=== PATIENT | female | born 1940 | race Caucasian/White ===

== ENCOUNTER 2019-10-24 14:22 | Outpatient (CLI) | payer MEDICARE, SELFPAY ==
--- NOTE | ~2019-10-24 | XR_ITS ---
XR chest 2V DATE: 10/24/2019 14:45 INDICATION: Intermittent midsternal chest pain TECHNIQUE: 2 views COMPARISON: 06/01/2015 2 view chest 06/14/2015 CT thorax with IV contrast material FINDINGS: Normal heart size. Mild aortic tortuosity and calcification. No interval hilar or mediastin al enlargement. No pulmonary infiltrate or consolidation, pleural effusion or pulmonary vascular ashley estion or pneumothorax. Diffuse osteopenia. Mild scoliosis and degenerative changes of the spine. IMPRESSION: No active cardiopulmonary disease or significant change since 06/01/2015. Reviewed, dictated and finalized at location A. IMPRESSION: No active cardiopulmonary disease or significant change since 2015.
[2019-10-24 14:36] LABS: Basophils Absolute Auto 0.06 K/mm3 (0.00-0.10); Basophils Percent Auto 0.7 % (0.0-1.0); Eosinophils Absolute Auto 0.15 K/mm3 (0.02-0.50); Eosinophils Percent Auto 1.9 % (1.0-6.0); Hematocrit 40.5 % (35.0-42.0); Hemoglobin 13.4 g/dL (11.7-13.8); Immature Granulocyte Absolute 0.03 K/mm3 (0.00-0.00); Immature Granulocyte Percent A 0.4 % (0.0-0.0); Lymphocytes Absolute Auto 1.92 K/mm3 (1.10-4.50); Lymphocytes Percent Auto 23.7 % (18.0-42.0); Mean Corpuscular HGB Conc 33.1 g/dL (32.0-36.0); Mean Corpuscular Volume 90.8 fL (78.0-102.0); Mean Platelet Volume 10.3 fl (9.2-11.8); Monocytes Absolute Auto 0.67 K/mm3 (0.10-0.90); Monocytes Percent Auto 8.3 % (2.0-11.0); Neutrophils Absolute Auto 5.3 K/mm3 (1.7-7.2); Platelet Count Result 247 K/mm3 (150-420); Red Blood Count 4.46 M/mm3 (4.20-5.40); Red Cell Distribution Width 12.7 % (11.6-14.4); White Blood Count 8.1 K/mm3 (4.8-10.8)
[2019-10-24 14:51] LABS: D Dimer 0.29 mg/L (0.19-0.50)
[2019-10-24 15:00] LABS: Alanine Aminotransferase 35 U/L (14-59); Alkaline Phosphatase 115 U/L (46-116); Anion Gap 13.3 mmol/L (7-16); Aspartate Amino Transferase 22 U/L (15-37); BNP 65 pg/mL (0-100); Bilirubin,Total 1.1 mg/dL (0.00-1.00); Blood Urea Nitrogen 19 mg/dL (7-18); Calcium 9.4 mg/dL (8.5-10.1); Carbon Dioxide 27 mmol/L (21-32); Chloride 100 mmol/L (98-108); Cholesterol 169 mg/dL (0-200); Creatine Kinase 86 U/L (26-192); Estimated Glomerular Filt Rate > 60; Glucose 159 mg/dL (70-99); HDL Direct 63 mg/dL (40-60); LDL Cholesterol Calculated 64 mg/dL (<130); Osmolality Calculated 287 mOsm/kg (285-295); Potassium 4.3 mmol/L (3.5-5.1); Sodium 136 mmol/L (136-145); Total Protein 7.2 g/dL (6.4-8.2); Triglycerides 209 mg/dL (0-150); Troponin I < 0.02 ng/mL (0.00-0.056)
[2019-10-24 15:04] LABS: Hemoglobin A1C 7.3 % (<5.7)
== END 2019-10-24 14:23 | disposition home or self-care (01) ==
LOC: CHSLAB 14:26
PROVIDERS: PCP Internal Medicine; Visit Provider Internal Medicine
DX: R07.9 Chest pain, unspecified (principal); I25.10 Atherosclerotic heart disease of native coronary artery without angina pectoris; I10 Essential (primary) hypertension; E11.9 Type 2 diabetes mellitus without complications; I50.9 Heart failure, unspecified
CPT/HCPCS: 36415; 71046; 80053; 80061; 82550; 82553; 83036; 83880; 84484; 85025; 85380

== ENCOUNTER 2020-01-27 08:42 | Outpatient (CLI) | payer MEDICARE, SELFPAY ==
--- NOTE | ~2020-01-27 | XR_ITS ---
XR lumbar spine 2-3V DATE: 01/27/2020 09:13 INDICATION: Chronic low back pain. No known injury. TECHNIQUE: AP, lateral, coned lateral lumbosacral views COMPARISON: 11/16/2008 lumbar spine FINDINGS: There is increased levoscoliosis of the lower thoracic and lumbar spine compared to 11/17/19 09, with some rotation. There is diffuse osteopenia. There is prominent degenerative disc disease throughout the lumbar and lumbosacral spine, as noted pr eviously. There is prominent degenerative disease at T11-12 and T12-L1 as well. No fracture or bone destruction is evident. The included lower thoracic and lumbar pedicles appear in tact. The sacroiliac joints appear normal. IMPRESSION: Increased degree of levoscoliosis of thoracolumbar spine since 11/16/2008 Prominent multilevel degenerative disc disease of the lumbar and lumbosacral spine is again noted Reviewed, dictated and finalized at location A. IMPRESSION: Increased degree of levoscoliosis of thoracolumbar spine since 11/16 Prominent multilevel degenerative disc disease of the lumbar and lumbosacral sp ine is again noted
== END 2020-01-27 08:43 | disposition home or self-care (01) ==
PROVIDERS: PCP Internal Medicine; Visit Provider Internal Medicine
DX: M54.9 Dorsalgia, unspecified (principal)
CPT/HCPCS: 72100

== ENCOUNTER 2020-05-17 09:05 | Outpatient (CLI) | payer MEDICARE, SELFPAY ==
--- NOTE | ~2020-05-17 | CT_ITS ---
EXAMINATION: CT brain wo/w con DATE: 05/17/2020 10:17 INDICATION: Patient was very confused. Cerebrovascular accident. TECHNIQUE: Computed tomography (CT) of the head was performed without and subsequently with 100 cc Om nipaque 350 intravenous contrast. The mA was adjusted according to patient size. Iterative reconstruc tion technique was employed. Exam dose: 1059.33 mGy-cm total exam DLP. COMPARISON: None FINDINGS: No fracture or bone destruction of the cranial vault. Included paranasal sinuses and mastoi d air cells are unremarkable. There is prominent calcification of the vertebral arteries and carotid siphon internal carotid arteri es. There is nonspecific diminished attenuation of the subcortical and periventricular cerebral white matter, likely due to chronic small vessel ischemic changes. No intracranial mass lesion or hemorrhage, midline shift or mass effect or recent cerebrovascular acc ident is evident. No midline shift or mass effect. No subdural or epidural hematoma. IMPRESSION: Cerebral atherosclerosis and chronic small vessel ischemic changes of the cerebral white matter No acute intracranial finding Reviewed, dictated and finalized at Location A. Reviewed, dictated and finalized at location A. 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
[2020-05-17 09:30] LABS: Estimated Glomerular Filt Rate > 60
== END 2020-05-17 09:06 | disposition home or self-care (01) ==
LOC: CHSIMG 09:07
PROVIDERS: PCP Internal Medicine; Visit Provider Specialist
DX: I63.9 Cerebral infarction, unspecified (principal)
CPT/HCPCS: 70470; Q9965; Q9967

== ENCOUNTER 2020-06-15 09:40 | Outpatient (CLI) | payer MEDICARE, SELFPAY ==
--- NOTE | ~2020-06-15 | XR_ITS ---
EXAMINATION: XR chest 2V DATE: 06/15/2020 10:36 INDICATION: Coronary artery disease, shortness of breath and weakness. TECHNIQUE: PA and lateral views of the chest were obtained. COMPARISON: Chest radiograph dated 10/24/2019 FINDINGS: Minimal bibasilar atelectasis. No pleural effusion or pneumothorax. Mild thoracolumbar kyphosis with moderate spondylosis. IMPRESSION: 1. Minimal bibasilar atelectasis. Reviewed, dictated and finalized at location B. 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
[2020-06-15 09:59] LABS: Basophils Absolute Auto 0.06 K/mm3 (0.00-0.10); Basophils Percent Auto 0.6 % (0.0-1.0); Eosinophils Absolute Auto 0.12 K/mm3 (0.02-0.50); Eosinophils Percent Auto 1.2 % (1.0-6.0); Hematocrit 42.1 % (35.0-42.0); Hemoglobin 13.6 g/dL (11.7-13.8); Immature Granulocyte Absolute 0.05 K/mm3 (0.00-0.00); Immature Granulocyte Percent A 0.5 % (0.0-0.0); Lymphocytes Absolute Auto 1.85 K/mm3 (1.10-4.50); Mean Corpuscular HGB Conc 32.3 g/dL (32.0-36.0); Mean Corpuscular Hemoglobin 29.9 pg (27.0-31.0); Mean Corpuscular Volume 92.5 fL (78.0-102.0); Mean Platelet Volume 10.9 fl (9.2-11.8); Monocytes Absolute Auto 0.61 K/mm3 (0.10-0.90); Monocytes Percent Auto 6.3 % (2.0-11.0); Neutrophils Absolute Auto 7.1 K/mm3 (1.7-7.2); Neutrophils Percent Auto 72.4 % (50.0-70.0); Platelet Count Result 219 K/mm3 (150-420); Red Blood Count 4.55 M/mm3 (4.20-5.40); Red Cell Distribution Width 12.3 % (11.6-14.4); White Blood Count 9.8 K/mm3 (4.8-10.8)
[2020-06-15 10:00] LABS: Appearance Urine Clear (Clear); Bilirubin Urine Negative (Negative); Color Urine Yellow (Yellow); Glucose Urine UA Negative (Negative); Ketones Urine Negative (Negative); Leukocyte Esterase Ur 1+ (Negative); Nitrate Urine Negative (Negative); Protein Urine Negative (Negative); Specific Grav Ur >= 1.030 (1.010-1.020); Urobilinogen Urine 0.2 mg/dL (0.2-1.0)
[2020-06-15 10:05] LABS: Add Urine Microscopic? YES; Bacteria Urine None seen /hpf; Blood Urine Trace (Negative); RBC Urine 0-2 /hpf (0-2); Squamous Epithelial Cell Urine Rare /hpf (Few)
[2020-06-15 10:09] LABS: Hemoglobin A1C 6.9 % (<5.7)
[2020-06-15 10:47] LABS: Alanine Aminotransferase 28 U/L (14-59); Albumin Level 4.5 g/dL (3.4-5.0); Alkaline Phosphatase 118 U/L (46-116); Anion Gap 9 mmol/L (8-16); Aspartate Amino Transferase 19 U/L (15-37); Blood Urea Nitrogen 18 mg/dL (7-18); Calcium 9.7 mg/dL (8.5-10.1); Carbon Dioxide 30 mmol/L (21-32); Chloride 99 mmol/L (98-108); Cholesterol 162 mg/dL (0-200); Estimated Glomerular Filt Rate > 60; Free T3 2.27 pg/mL (2.18-3.98); Free T4 Free Thyroxine 1.11 ng/dL (0.76-1.46); Glucose 178 mg/dL (70-99); HDL Direct 61 mg/dL (40-60); LDL Cholesterol Calculated 70 mg/dL (<130); Osmolality Calculated 291 mOsm/kg (285-295); Potassium 4.8 mmol/L (3.5-5.1); Sodium 138 mmol/L (136-145); Thyroid Stimulating Hormone 0.95 uIU/mL (0.36-3.74); Total Protein 7.6 g/dL (6.4-8.2); Triglycerides 157 mg/dL (0-150)
[2020-06-15 10:50] LABS: CRP < 0.2 mg/dL (0.0-0.9)
[2020-06-17 22:51] LABS: Methylmalonic Acid 220 nmol/L (87-318)
== END 2020-06-15 09:41 | disposition home or self-care (01) ==
LOC: CHSLAB 09:43
PROVIDERS: PCP Internal Medicine; Visit Provider Internal Medicine
DX: M54.9 Dorsalgia, unspecified (principal); R32 Unspecified urinary incontinence; I25.10 Atherosclerotic heart disease of native coronary artery without angina pectoris; R26.9 Unspecified abnormalities of gait and mobility; E11.9 Type 2 diabetes mellitus without complications; E53.8 Deficiency of other specified B group vitamins
CPT/HCPCS: 36415; 71046; 80053; 80061; 81001; 83036; 83921; 84439; 84443; 84481; 85025; 86140; 87086; 87088

== ENCOUNTER 2020-06-16 07:10 | Outpatient (CLI) | payer MEDICARE, SELFPAY ==
--- NOTE | ~2020-06-16 | DEXA_ITS ---
Bone Density Report Name: Yadira Grimes Age: 79 Sex: Female Ethnicity: White Date of : 1940 Indication: postmenopausal; screening for osteoporosis; height loss; Referring Provider: Kapil Cano Study: Bone densitometry was performed. Exam Date: June 16, 2020 Accession number: [id number] Bone Density: Region BMD T-score Z-score Classification AP Spine(L1-L4) 1.102 0.5 3.2 Normal Femoral Neck (Left) 0.859 0.1 2.4 Normal Total Hip (Left) 0.925 -0.1 2.0 Normal Femoral Neck (Right) 0.831 -0.2 2.2 Normal Total Hip (Right) 0.941 0.0 2.1 Normal Femoral Neck Mean 0.845 0.0 2.3 Normal Total Hip Mean 0.933 -0.1 2.0 Normal World Health Organization criteria for BMD impression classify patients as: Normal (T-score at or above -1.0), Osteopenia (T-score between -1.0 and -2.5), or Osteoporosis (T-score at or below -2.5). 10-year Fracture Risk: FRAX not reported because: All T-scores for Spine Total, Hip Total, Femoral Neck at or above -1.0 Clinical Information Provided by Patient: Has used the following medications: Vitamin D Patient maximum height was 63.5 Menopause Age: 57 Onset of menses at age 11 Number of children 6 Impression: The patient has normal bone mass. Discussion: LOW RISK OF FRACTURE; BONE DENSITY IS WELL ABOVE THE MINIMUM DESIRABLE LEVEL AND ABOVE AVERAGE FOR AGE AND SEX AT ALL SKELETAL SITES TESTED. This person's bone density is above expected limits for age and sex. This is rarely clinically significant, but should be pursued if there are significant musculoskeletal complaints. The patient should follow a healthful lifestyle (good nutrition with adequate calcium and vitamin D, and appropriate weight-bearing exercise). Follow-Up: Consider repeating this study in 5 years or sooner if there is some new clinical indication. Reported by: Dr. Karthikeyan Holbrook on 06/16/2020 8:02:00 AM. Reviewed, dictated and finalized at location AMartina [facility]
--- NOTE | ~2020-06-16 | MR_ITS ---
EXAMINATION: MR lumbar spine wo con DATE: 06/16/2020 08:30 INDICATION: Low back pain. TECHNIQUE: Magnetic resonance imaging (MRI) of the lumbar spine was performed without intravenous con trast. Sequences included sagittal T2-weighted FSE, coronal T2-weighted FSE, sagittal T2-weighted FS FSE, sagittal T1-weighted FSE, and axial T1-weighted FSE. COMPARISON: Lumbar spine radiographs 01/27/2020 FINDINGS: There is 19 degrees levoscoliosis of thoracolumbar spine. There is 3 mm retrolisthesis of L 2 on L3 and L1 on L2. There is severely decreased disc height from T11-T12 through L1-L2, moderately decreased disc height at L2-L3 and L3-L4, and severely decreased disc height at L4-L5 and L5-S1. The distal spinal cord signal intensity is normal. The conus medullaris is at L1. The following disc leve ls are specifically discussed: L1-L2: The disc is bulging and has an annular fissure. There is mild bilateral facet joint osteoarthr itis. There is moderate right and mild left neural foraminal stenosis. There is mild central canal st enosis. L2-L3: The disc is bulging. There is mild bilateral facet joint osteoarthritis. There is moderate edgard ateral neural foraminal stenosis. There is mild central canal stenosis. L3-L4: The disc is bulging and has an annular fissure. There is mild right and severe left facet join t osteoarthritis. There is moderate bilateral neural foraminal stenosis. There is moderate central ca nal stenosis. L4-L5: The disc is bulging and has an annular fissure. There is moderate right and severe left facet joint osteoarthritis. There is moderate bilateral neural foraminal stenosis. There is mild central ca nal stenosis. L5-S1: The disc is bulging and has an annular fissure. There is severe bilateral facet joint osteoart hritis. There is moderate bilateral neural foraminal stenosis. There is mild central canal stenosis. IMPRESSION: 1. Severe lumbar spondylosis. 2. Thoracolumbar levoscoliosis. Reviewed, dictated and finalized at location A. 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
== END 2020-06-16 07:11 | disposition home or self-care (01) ==
PROVIDERS: PCP Internal Medicine; Visit Provider Internal Medicine
DX: M54.9 Dorsalgia, unspecified (principal); Z78.0 Asymptomatic menopausal state; R32 Unspecified urinary incontinence; I25.10 Atherosclerotic heart disease of native coronary artery without angina pectoris; R26.89 Other abnormalities of gait and mobility; E11.9 Type 2 diabetes mellitus without complications; E53.8 Deficiency of other specified B group vitamins
CPT/HCPCS: 72148; 77080

== ENCOUNTER 2020-10-13 09:10 | Outpatient (CLI) | payer MEDICARE, SELFPAY ==
--- NOTE | ~2020-10-13 | MR_ITS ---
EXAMINATION: MR brain/brain stem wo con DATE: 10/13/2020 12:01 INDICATION: Headache. Confusion. TECHNIQUE: Magnetic resonance imaging (MRI) of the brain and brainstem was performed without intraven ous contrast. Sequences included sagittal and axial T1-weighted FSE, axial diffusion-weighted FS EPI, axial T2*-weighted GRE, axial T2-weighted FLAIR Propeller, and axial T2-weighted Propeller. Apparent diffusion coefficient (ADC) maps were created. COMPARISON: Head CT 05/17/2020 FINDINGS: There is an empty sella. There are scattered areas of nonspecific increased T2-weighted s ignal intensity in the cerebral white matter and marta. There is no intracranial hemorrhage, acute inf arction, or abnormal intracranial mass lesion. The ventricles are normal in size. There are likely ch anges of ocular lens replacement surgeries. There is mild mucosal thickening in right maxillary sinus . The mastoid air cells are normal. IMPRESSION: 1. Moderate nonspecific cerebral white matter disease and pontine disease, which likely represents ch ronic small vessel ischemic disease. Reviewed, dictated and finalized at location B. IMPRESSION: 1. Moderate nonspecific cerebral white matter disease and pontine disease, whic h likely represents chronic small vessel ischemic disease.
[2020-10-13 09:23] LABS: Basophils Absolute Auto 0.06 K/mm3 (0.00-0.10); Basophils Percent Auto 0.7 % (0.0-1.0); Eosinophils Absolute Auto 0.13 K/mm3 (0.02-0.50); Eosinophils Percent Auto 1.5 % (1.0-6.0); Hematocrit 42.4 % (35.0-42.0); Hemoglobin 13.7 g/dL (11.7-13.8); Immature Granulocyte Absolute 0.03 K/mm3 (0.00-0.00); Immature Granulocyte Percent A 0.3 % (0.0-0.0); Lymphocytes Percent Auto 19.6 % (18.0-42.0); Mean Corpuscular HGB Conc 32.3 g/dL (32.0-36.0); Mean Corpuscular Hemoglobin 30.1 pg (27.0-31.0); Mean Corpuscular Volume 93.2 fL (78.0-102.0); Mean Platelet Volume 10.4 fl (9.2-11.8); Monocytes Absolute Auto 0.52 K/mm3 (0.10-0.90); Neutrophils Absolute Auto 6.3 K/mm3 (1.7-7.2); Neutrophils Percent Auto 71.9 % (50.0-70.0); Platelet Count Result 232 K/mm3 (150-420); Red Blood Count 4.55 M/mm3 (4.20-5.40); Red Cell Distribution Width 12.1 % (11.6-14.4); White Blood Count 8.7 K/mm3 (4.8-10.8)
[2020-10-13 10:29] LABS: Alanine Aminotransferase 38 U/L (14-59); Albumin Level 4.3 g/dL (3.4-5.0); Alkaline Phosphatase 124 U/L (46-116); Anion Gap 11 mmol/L (8-16); Aspartate Amino Transferase 21 U/L (15-37); Bilirubin,Total 1.2 mg/dL (0.00-1.00); Blood Urea Nitrogen 22 mg/dL (7-18); Calcium 9.6 mg/dL (8.5-10.1); Carbon Dioxide 28 mmol/L (21-32); Chloride 98 mmol/L (98-108); Estimated Glomerular Filt Rate 57; Glucose 237 mg/dL (70-99); Osmolality Calculated 295 mOsm/kg (285-295); Potassium 4.3 mmol/L (3.5-5.1); Sodium 137 mmol/L (136-145); Thyroid Stimulating Hormone 0.98 uIU/mL (0.36-3.74); Total Protein 7.1 g/dL (6.4-8.2)
== END 2020-10-13 09:11 | disposition home or self-care (01) ==
LOC: CHSIMG 09:14
PROVIDERS: PCP Internal Medicine; Visit Provider Internal Medicine
DX: R41.0 Disorientation, unspecified (principal); E11.9 Type 2 diabetes mellitus without complications
CPT/HCPCS: 36415; 70551; 80053; 83036; 84443; 85025

== ENCOUNTER 2020-10-14 07:26 | Outpatient (CLI) | payer MEDICARE, SELFPAY | END 2020-10-14 07:27 | disposition home or self-care (01) | LOC: CHSLAB 07:27 | PROVIDERS: PCP Internal Medicine; Visit Provider Internal Medicine | DX: R41.0 Disorientation, unspecified (principal); E11.9 Type 2 diabetes mellitus without complications | CPT/HCPCS: 87086 ==

== ENCOUNTER 2021-09-19 07:59 | Outpatient (CLI) | payer MEDICARE, SELFPAY ==
[2021-09-19 08:30] LABS: Basophils Absolute Auto 0.06 K/mm3 (0.00-0.10); Basophils Percent Auto 0.7 % (0.0-1.0); Eosinophils Absolute Auto 0.19 K/mm3 (0.02-0.50); Eosinophils Percent Auto 2.1 % (1.0-6.0); Hematocrit 39.7 % (35.0-42.0); Hemoglobin 12.7 g/dL (11.7-13.8); Immature Granulocyte Absolute 0.04 K/mm3 (0.00-0.00); Immature Granulocyte Percent A 0.5 % (0.0-0.0); Lymphocytes Absolute Auto 1.75 K/mm3 (1.10-4.50); Lymphocytes Percent Auto 19.8 % (18.0-42.0); Mean Corpuscular Hemoglobin 30.3 pg (27.0-31.0); Mean Corpuscular Volume 94.7 fL (78.0-102.0); Mean Platelet Volume 10.8 fl (9.2-11.8); Monocytes Absolute Auto 0.66 K/mm3 (0.10-0.90); Monocytes Percent Auto 7.5 % (2.0-11.0); Neutrophils Absolute Auto 6.2 K/mm3 (1.7-7.2); Neutrophils Percent Auto 69.4 % (50.0-70.0); Platelet Count Result 207 K/mm3 (150-420); Red Blood Count 4.19 M/mm3 (4.20-5.40); Red Cell Distribution Width 12.3 % (11.6-14.4); White Blood Count 8.9 K/mm3 (4.8-10.8)
[2021-09-19 08:33] LABS: Add Urine Microscopic? YES; Appearance Urine Clear (Clear); Bilirubin Urine Negative (Negative); Blood Urine Negative (Negative); Color Urine Light Yellow (Yellow); Glucose Urine UA Negative (Negative); Ketones Urine Negative (Negative); Leukocyte Esterase Ur Trace (Negative); Nitrate Urine Negative (Negative); Protein Urine Negative (Negative); Specific Grav Ur 1.015 (1.010-1.020); Urobilinogen Urine 0.2 mg/dL (0.2-1.0)
[2021-09-19 08:43] LABS: Bacteria Urine Trace /hpf; RBC Urine None seen /hpf (0-2); Squamous Epithelial Cell Urine Few /hpf (Few); WBC Urine 0-3 /hpf (0-3)
[2021-09-19 08:45] LABS: Alanine Aminotransferase 29 U/L (14-59); Albumin Level 3.8 g/dL (3.4-5.0); Alkaline Phosphatase 114 U/L (46-116); Anion Gap 8 mmol/L (8-16); Aspartate Amino Transferase 20 U/L (15-37); Blood Urea Nitrogen 21 mg/dL (7-18); Calcium 9.2 mg/dL (8.5-10.1); Carbon Dioxide 29 mmol/L (21-32); Chloride 101 mmol/L (98-108); Cholesterol 150 mg/dL (0-200); Estimated Glomerular Filt Rate > 60; Glucose 172 mg/dL (70-99); HDL Direct 62 mg/dL (40-60); LDL Cholesterol Calculated 63 mg/dL (<130); Osmolality Calculated 293 mOsm/kg (285-295); Potassium 4.5 mmol/L (3.5-5.1); Sodium 138 mmol/L (136-145); Total Protein 6.8 g/dL (6.4-8.2); Triglycerides 124 mg/dL (0-150)
[2021-09-19 08:49] LABS: Hemoglobin A1C 7.7 % (<5.7)
== END 2021-09-19 08:00 | disposition home or self-care (01) ==
PROVIDERS: PCP Internal Medicine; Visit Provider Internal Medicine
DX: E78.5 Hyperlipidemia, unspecified (principal); E11.9 Type 2 diabetes mellitus without complications; I10 Essential (primary) hypertension
CPT/HCPCS: 36415; 80053; 80061; 81001; 83036; 85025

== ENCOUNTER 2022-03-10 11:14 | Outpatient (CLI) | payer MEDICARE, SELFPAY ==
--- NOTE | ~2022-03-10 | CT_ITS ---
EXAMINATION: CT brain wo con INDICATION: Head injury COMPARISON: 05/17/2020 TECHNIQUE: Standard unenhanced head CT. The dose-length product (DLP) was 605.33 mGy-cm. The mA was a djusted according to patient size. Iterative reconstruction technique was employed. FINDINGS: There is no acute intraparenchymal hemorrhage. No evidence of mass lesion. No evidence of a cute infarction. There is mild periventricular and subcortical hypodensity probably related to small vessel ischemic disease. There is mild prominence of the sulci and ventricles related to cerebral atr ophy. Intracranial calcified cerebral atherosclerosis is noted. There are no extra-axial collections. There is no mass effect or midline shift. Changes in the globes are likely from ocular lens surgery. There is mild mucosal thickening of the paranasal sinuses. IMPRESSION: 1. No acute intracranial abnormality. 2. Age related findings. Reviewed, dictated and finalized at location B.
[2022-03-10 11:29] LABS: Basophils Absolute Auto 0.07 K/mm3 (0.00-0.10); Basophils Percent Auto 0.8 % (0.0-1.0); Eosinophils Absolute Auto 0.16 K/mm3 (0.02-0.50); Eosinophils Percent Auto 1.8 % (1.0-6.0); Hematocrit 39.2 % (35.0-42.0); Hemoglobin 12.9 g/dL (11.7-13.8); Immature Granulocyte Absolute 0.05 K/mm3 (0.00-0.00); Immature Granulocyte Percent A 0.6 % (0.0-0.0); Lymphocytes Absolute Auto 1.59 K/mm3 (1.10-4.50); Lymphocytes Percent Auto 17.7 % (18.0-42.0); Mean Corpuscular HGB Conc 32.9 g/dL (32.0-36.0); Mean Corpuscular Hemoglobin 30.2 pg (27.0-31.0); Mean Corpuscular Volume 91.8 fL (78.0-102.0); Mean Platelet Volume 10.7 fl (9.2-11.8); Monocytes Absolute Auto 0.79 K/mm3 (0.10-0.90); Monocytes Percent Auto 8.8 % (2.0-11.0); Neutrophils Absolute Auto 6.3 K/mm3 (1.7-7.2); Neutrophils Percent Auto 70.3 % (50.0-70.0); Platelet Count Result 214 K/mm3 (150-420); Red Blood Count 4.27 M/mm3 (4.20-5.40); Red Cell Distribution Width 12.4 % (11.6-14.4)
[2022-03-10 11:42] LABS: Hemoglobin A1C 7.9 % (<5.7)
[2022-03-10 12:00] LABS: Alanine Aminotransferase 30 U/L (14-59); Albumin Level 4.2 g/dL (3.4-5.0); Alkaline Phosphatase 131 U/L (46-116); Anion Gap 9 mmol/L (8-16); Aspartate Amino Transferase 19 U/L (15-37); Bilirubin,Total 1.4 mg/dL (0.00-1.00); Blood Urea Nitrogen 22 mg/dL (7-18); Calcium 9.3 mg/dL (8.5-10.1); Carbon Dioxide 28 mmol/L (21-32); Chloride 99 mmol/L (98-108); Cholesterol 163 mg/dL (0-200); Estimated Glomerular Filt Rate 60; Glucose 244 mg/dL (70-99); HDL Direct 62 mg/dL (40-60); LDL Cholesterol Calculated 63 mg/dL (<130); Osmolality Calculated 293 mOsm/kg (285-295); Potassium 4.4 mmol/L (3.5-5.1); Sodium 136 mmol/L (136-145); Total Protein 7.4 g/dL (6.4-8.2); Triglycerides 191 mg/dL (0-150)
[2022-03-10 13:16] LABS: Appearance Urine Clear (Clear); Bilirubin Urine Negative (Negative); Blood Urine Negative (Negative); Glucose Urine UA 2+ (Negative); Ketones Urine Negative (Negative); Leukocyte Esterase Ur Negative (Negative); Nitrate Urine Negative (Negative); Protein Urine Negative (Negative); Urobilinogen Urine 0.2 mg/dL (0.2-1.0)
[2022-03-10 13:22] LABS: Add Urine Microscopic? YES; Bacteria Urine None seen /hpf; Color Urine Light Yellow (Yellow); RBC Urine None seen /hpf (0-2); Squamous Epithelial Cell Urine None seen /hpf (Few); WBC Urine None seen /hpf (0-3)
== END 2022-03-10 11:15 | disposition home or self-care (01) ==
PROVIDERS: PCP Internal Medicine; Visit Provider Internal Medicine
DX: S09.90XA Unspecified injury of head, initial encounter (principal); F03.90 Unspecified dementia, unspecified severity, without behavioral disturbance, psychotic disturbance, mood disturbance, and anxiety; E78.5 Hyperlipidemia, unspecified; E11.9 Type 2 diabetes mellitus without complications; R41.82 Altered mental status, unspecified
CPT/HCPCS: 36415; 70450; 80053; 80061; 81001; 83036; 85025; 87086

== ENCOUNTER 2022-10-10 14:30 | Outpatient (RCR) | payer MEDICARE, SELFPAY ==
[2022-10-10 15:04] VITALS: BMI 21.4
[2022-10-10 15:07] VITALS: BMI 21.4
== END 2022-12-11 09:40 | disposition home or self-care (01) ==
LOC: ANHDMC 14:30
PROVIDERS: PCP Internal Medicine; Visit Provider Internal Medicine
DX: E11.9 Type 2 diabetes mellitus without complications (principal); Z71.89 Other specified counseling; Z71.3 Dietary counseling and surveillance
CPT/HCPCS: 97802; G0108

== ENCOUNTER 2023-03-09 16:00 | Emergency (ER) | payer MEDICARE, SELFPAY ==
[2023-03-09] VITALS (14 sets, daily range): BP systolic 128–151; BP diastolic 58–80; PULSE 65–76; RESP 16–18; TEMP 36.6; O2SAT 96–100
--- NOTE | ~2023-03-09 | CT_ITS ---
EXAMINATION: CT brain wo con DATE: 03/09/2023 17:13 INDICATION: Confusion for 6 days. History of stroke, dementia. TECHNIQUE: Computed tomography (CT) of the head was performed without intravenous contrast. The mA wa s adjusted according to patient size. Iterative reconstruction technique was employed. Exam dose: 60 5.33 mGy-cm total exam DLP. COMPARISON: 03/10/2022 CT brain FINDINGS: Mild cerebellar and moderate cerebral volume loss. Prominent bilateral vertebral artery and carotid siphon internal carotid artery calcifications. There is nonspecific diminished attenuation of the cerebral white matter, likely due to chronic small vess el ischemic changes. No intracranial mass lesion or hemorrhage or cerebrovascular accident, midline shift or mass effect i s detected. No subdural or epidural hematoma. Slight fluid level in the right maxillary sinus. Minimal mucoperiosteal thickening of the right front al, maxillary and bilateral sphenoid sinuses and patchy soft tissue thickening of the ethmoid air anneliese ls. The mastoid air cells are normally developed and aerated. No fracture or bone destruction of the cranial vault. IMPRESSION: Cerebral atherosclerosis and chronic small vessel ischemic changes of the cerebral white matter No acute intracranial finding Reviewed, dictated and finalized at Location A. Reviewed, dictated and finalized at location B.
--- NOTE | ~2023-03-09 | XR_ITS ---
XR chest 1V portable DATE: 03/09/2023 17:13 INDICATION: Cough, dyspnea. Covid symptoms for 6 days. TECHNIQUE: Portable AP chest on 03/09/2023 at 1700 hours COMPARISON: 06/15/2020 2 view chest FINDINGS: Normal heart size. Aortic arch calcification. No hilar or mediastinal enlargement is eviden t on this limited rotated single portable view. There is suggestion of minimal infiltrate or atelectasis at the lung bases. No pleural effusion or pu lmonary vascular congestion or pneumothorax is detected. Diffuse osteopenia. IMPRESSION: Minimal infiltrate or atelectasis is suggested at the lung bases Reviewed, dictated and finalized at location B.
--- NOTE | 2023-03-09 16:19 | ECG_ITS ---
Measurements Intervals [place] Rate: 72 P: 6 W[place]: 192 QRS: 5 QRSD: 89 T: 53 QT: 414 QTc: 456 Interpretive Statements SINUS RHYTHM NORMAL ELECTROCARDIOGRAM NO PREVIOUS ECG AVAILABLE FOR COMPARISON Electronically Signed On 03-10-2023 8:56:49 CDT by Ty Simpson M.D.
--- NOTE | 2023-03-09 16:20 | PC.NURSE ---
LAB AT BESIDE GETTING BLOOD WORK AT THIS TIME.
--- NOTE | 2023-03-09 16:30 | PC.NURSE ---
CARDIOPULMONARY AT BEDSIDE GETTING EKG.
[2023-03-09 16:38] LABS: Basophils Absolute Auto 0.05 K/mm3 (0.00-0.10); Basophils Percent Auto 0.8 % (0.0-1.0); Eosinophils Absolute Auto 0.15 K/mm3 (0.02-0.50); Eosinophils Percent Auto 2.4 % (1.0-6.0); Hematocrit 37.8 % (35.0-42.0); Hemoglobin 12.4 g/dL (11.7-13.8); Immature Granulocyte Absolute 0.06 K/mm3 (0.00-0.00); Lymphocytes Absolute Auto 1.65 K/mm3 (1.10-4.50); Lymphocytes Percent Auto 26.7 % (18.0-42.0); Mean Corpuscular HGB Conc 32.8 g/dL (32.0-36.0); Mean Corpuscular Hemoglobin 30.2 pg (27.0-31.0); Mean Platelet Volume 10.4 fl (9.2-11.8); Monocytes Absolute Auto 0.72 K/mm3 (0.10-0.90); Monocytes Percent Auto 11.7 % (2.0-11.0); Neutrophils Absolute Auto 3.5 K/mm3 (1.7-7.2); Neutrophils Percent Auto 57.4 % (50.0-70.0); Platelet Count Result 227 K/mm3 (150-420); Red Blood Count 4.11 M/mm3 (4.20-5.40); Red Cell Distribution Width 12.7 % (11.6-14.4); White Blood Count 6.2 K/mm3 (4.8-10.8)
--- NOTE | 2023-03-09 16:40 | PC.NURSE ---
PATIENT TAKEN DOWN TO CT.
--- NOTE | 2023-03-09 16:49 | ED.GENADULT ---
HPI - General Adult General Chief complaint: Upper Respiratory Infection Stated complaint: covid positve and weakness Time Seen by Provider: 03/09/23 16:17 History of Present Illness HPI narrative: 82yo woman history of CVA, vascular dementia, brought by daughter with concern for worsening mental status, increased lethargy, sluggishness, poor responsiveness, and concern for possible new stroke or TIA over the past 6 days with cough and congestion. Diagnosed with CoViD. Has been on Paxlovid for a few days but stopped taking it today. Having watery diarrhea as well. Related Data Home Medications Medication Instructions Recorded Confirmed alprazolam 0.5 mg tablet 0.25 mg PO DAILY 03/09/23 atorvastatin 40 mg tablet 40 mg PO HS 03/09/23 donepezil 10 mg tablet 10 mg PO HS 03/09/23 lisinopril 10 mg tablet 10 mg PO HS 03/09/23 metformin 500 mg tablet,extended 500 mg PO BID 03/09/23 release 24 hr metoprolol succinate 50 mg 50 mg PO BID 03/09/23 tablet,extended release 24 hr Allergies Allergy/AdvReac Type Severity Reaction Status Date / Time No Known Allergies Allergy Verified 03/09/23 16:15 Review of Systems Review of Systems: All systems reviewed & are unremarkable except as noted in HPI and below Constitutional: Constitutional: Denies chills and Denies fever(s) ENT: Denies dysphagia Cardiovascular: Cardiovascular: Denies chest pain Respiratory: Respiratory: Denies dyspnea Gastrointestinal: Gastrointestinal: Denies abdominal pain Neurologic: Denies focal weakness and Denies numbness PMFSH Social History Social History Spiritual care concerns: No Exam Const: General: no acute distress Nutritional Appearance: well nourished and thin Other: awake, but sluggishly responsive, inattentive1 Eyes: Conjunctivae: conjunctivae normal Resp: Effort & Inspection: normal respiratory effort Auscultation: clear to auscultation bilaterally Cardio: Rate: regular rate Rhythm: regular rhythm Heart sounds: no murmurs GI: Inspection: non-distended GI Palp: Yes Soft to palpation and No Tenderness to palpation present (GI) Skin: General skin exam: normal color, no jaundice and no pallor Neuro: Other: oriented only to self, follows commands, does not smile or grimace, EOMI, has symmetric strength both arms with no drift Extrem: General: no clubbing, cyanosis or edema Course Course Emergency Course: 1936: pt accepted by DIANE Velasquez for Dr. Flynn to [facility] floor Vital Signs Vital signs: Vital Signs Temperature 36.6 C 03/09/23 16:17 Pulse Rate 68 03/09/23 16:17 Respiratory Rate 17 03/09/23 16:17 Blood Pressure 140/68 03/09/23 16:17 Pulse Oximetry 96 03/09/23 16:17 Oxygen Delivery Room Air 03/09/23 16:17 Temperature 36.6 C 03/09/23 16:17 Pulse Rate 65 03/09/23 17:48 Respiratory Rate 16 03/09/23 17:48 Blood Pressure 141/73 H 03/09/23 17:48 Pulse Oximetry 99 03/09/23 17:48 Oxygen Delivery Room Air 03/09/23 16:29 Medical Decision Making MDM Narrative Medical decision making narrative: listlessness, cough DDx pneumonia, viral pneumonia, bronchitis, hypoactive delirium, less likely cerebrovascular accident or hemorrhage, also likely adverse effect of paxlovid medication which should be discontinued immediately. Start corticosteroids, fluid repletion. Vital Signs Vital Signs: Vital Signs Temperature 36.6 C 03/09/23 16:17 Pulse Rate 68 03/09/23 16:17 Respiratory Rate 17 03/09/23 16:17 Blood Pressure 140/68 03/09/23 16:17 Pulse Oximetry 96 03/09/23 16:17 Oxygen Delivery Room Air 03/09/23 16:17 Temperature 36.6 C 03/09/23 16:17 Pulse Rate 65 03/09/23 17:48 Respiratory Rate 16 03/09/23 17:48 Blood Pressure 141/73 H 03/09/23 17:48 Pulse Oximetry 99 03/09/23 17:48 Oxygen Delivery Room Air 03/09/23 16:29 Lab
[2023-03-09 16:55] LABS: Alanine Aminotransferase 24 U/L (14-59); Albumin Level 3.3 g/dL (3.4-5.0); Alkaline Phosphatase 102 U/L (46-116); Anion Gap 10 mmol/L (8-16); Aspartate Amino Transferase 21 U/L (15-37); Bilirubin,Total 0.5 mg/dL (0.00-1.00); Blood Urea Nitrogen 29 mg/dL (7-18); Calcium 9.6 mg/dL (8.5-10.1); Carbon Dioxide 29 mmol/L (21-32); Chloride 94 mmol/L (98-108); Estimated Glomerular Filt Rate > 60; Glucose 115 mg/dL (70-99); Magnesium 1.9 mg/dL (1.8-2.4); Osmolality Calculated 282 mOsm/kg (285-295); Potassium 4.7 mmol/L (3.5-5.1); Sodium 133 mmol/L (136-145); Total Protein 6.8 g/dL (6.4-8.2)
[2023-03-09 16:57] LABS: Lactic Acid Reflex 2.4 mmol/L (0.4-2.0)
[2023-03-09 17:01] LABS: NT Pro B Type Natriuretic Pept 117 pg/mL (0-450); Troponin I 5.4 ng/L (0.00-60.4)
--- NOTE | 2023-03-09 17:15 | PC.NURSE ---
PATIENT BACK IN ROOM FROM CT.
[2023-03-09] MEDS: SODIUM CHLORIDE 0.9% IV 1,000 ML 999 ML IV CONT ×2 (17:27→17:31)
[2023-03-09 17:54] LABS: Appearance Urine Clear (Clear); Bilirubin Urine Negative (Negative); Blood Urine Negative (Negative); Color Urine Light Yellow (Yellow); Glucose Urine UA Negative (Negative); Ketones Urine Negative (Negative); Leukocyte Esterase Ur Negative LEU/UL (Negative); Nitrate Urine Negative (Negative); Protein Urine Negative (Negative); Urobilinogen Urine 0.2 mg/dL (0.2-1.0)
[2023-03-09 17:57] LABS: Add Urine Microscopic? NO
[2023-03-09 19:35] LABS: Reflex Lactic Acid Yes or No Add Lactic
[2023-03-09 20:40] LABS: Lactic Acid 1.3 mmol/L (0.4-2.0)
== END 2023-03-09 22:27 | disposition short-term general hospital (02) ==
PROVIDERS: Emergency Provider Emergency Medicine; PCP Internal Medicine
DX: G93.40 Encephalopathy, unspecified (principal); U07.1 COVID-19; R53.83 Other fatigue; E86.0 Dehydration; Z79.899 Other long term (current) drug therapy; Z79.84 Long term (current) use of oral hypoglycemic drugs
CPT/HCPCS: 36415; 70450; 71045; 80053; 81003; 83605; 83735; 83880; 84484; 85025; 93005; 96361; 96374; 99285; J1100; J7030

== ENCOUNTER 2023-03-10 02:23 | Inpatient (IN) | payer MEDICARE, SELFPAY ==
--- NOTE | 2023-03-09 23:09 | ADMGEN ---
This patient, Yadira Grimes, was admitted to Medical Room 254-01. Patient/family oriented to hospital policies and general routines including ID bracelet, bed and alarms, visiting hours, pain management, procedures, bathroom and other care routines, personal items, smoking policy, room service/diet, and visiting hours. Information on how to activate the Rapid Response Team has been discussed. Patient/Family are encouraged to report perceived risks to care and to ask questions if they do not understand what they are told or what they should do.
[2023-03-09 23:12] VITALS: BP 134/61; PULSE 75; RESP 16; TEMP 36.5; O2SAT 97; BMI 23.6
[2023-03-10] VITALS (11 sets, daily range): BP systolic 97–174; BP diastolic 53–82; PULSE 54–106; RESP 14–16; TEMP 36.4–36.9; O2SAT 97–99
--- NOTE | ~2023-03-10 | XR_ITS ---
EXAMINATION: XR foot RT min 3V DATE: 03/15/2023 15:49 INDICATION: Right anterior foot pain and erythema TECHNIQUE: Dorsoplantar, two oblique and lateral views of the right foot were obtained. COMPARISON: None. FINDINGS: Bone alignment is normal. No fracture. Polyarticular osteoarthritis, moderate severity at the second- fourth tarsal metatarsal joints and mild at the remaining tarsal metatarsal joints, the naviculocunei form joint, first metacarpophalangeal joint and multiple interphalangeal joints. Subarticular lucenci es with thin sclerotic margins at the base of the fourth and fifth metatarsals which could represent degenerative subchondral cysts or potentially chronic erosion such as in the setting of gout. Moderat e-sized Achilles calcaneal spur with small enthesopathic calcification the distal Achilles tendon. IMPRESSION: 1. Mild to moderate polyarticular osteoarthritis most prominent at the central tarsal metatarsal join ts. 2. Subarticular lucencies at the base of the fourth and fifth metatarsals which could represent degen erative subchondral cysts or potentially chronic erosion such as in the setting of gout. Reviewed, dictated and finalized at location A. IMPRESSION: 1. Mild to moderate polyarticular osteoarthritis most prominent at the central tarsal metatarsal joints. 2. Subarticular lucencies at the base of the fourth and fifth metatarsals which could represent degenerative subchondral cysts or potentially chronic erosion such as in the setting of gout.
--- NOTE | ~2023-03-10 | MR_ITS ---
EXAMINATION: MR brain/brain stem wo con DATE: 03/11/2023 08:42 INDICATION: Confusion TECHNIQUE: Magnetic resonance imaging (MRI) of the brain and brainstem was performed without intraven ous contrast. Sequences included sagittal and axial T1-weighted SE, axial diffusion-weighted FS SE, a xial T2*-weighted GRE, axial T2-weighted FLAIR Propeller, and axial T2-weighted Propeller. Apparent d iffusion coefficient (ADC) maps were created. COMPARISON: MRI dated 10/13/[address] dated 03/09/2023. FINDINGS: Generalized atrophy. There are scattered moderate periventricular and subcortical white mat ter as well as marta changes, most likely related to small vessel ischemic disease (microangiopathy). No acute intracranial hemorrhage, infarction, mass or mass effect. Midline sagittal images demonstrat e a normal corpus callosum and craniovertebral junction. No midline shift. Structures of the posterio r fossa are otherwise unremarkable. Orbits are symmetric without disconjugate gaze. No significant ab normality of the paranasal sinuses. IMPRESSION: 1. No acute intracranial abnormality. 2: Chronic age-related findings. Reviewed, dictated and finalized at location A.
--- NOTE | ~2023-03-10 | XR_ITS ---
XR chest 1V portable 03/10/2023 06:30 Indication: Infiltrates. Procedure: AP portable chest Comparison: Comparison to multiple prior studies sequentially, with oldest reviewed study dated 06/01. Findings: Stable cardiomediastinal silhouette. There is atherosclerosis of the aorta. There is mild i nterstitial edema. No significant effusion or pneumothorax. No acute osseous abnormality. Impression: 1: Mild interstitial edema. Reviewed, dictated and finalized at location A. Impression: 1: Mild interstitial edema.
[2023-03-10] MEDS: SODIUM CHLORIDE 0.9% IV 1,000 ML 100 ML IV CONT (05:47)
[2023-03-10] MEDS: cefTRIAXone 2 GM/NS 100 ML 2 GM/100 ML BAG IVPB (05:47)
[2023-03-10] MEDS: AZITHROMYCIN 500 MG/NS 250 ML 500 MG/250 ML BAG 250 MG IVPB (05:47)
[2023-03-10] MEDS: METOPROLOL SUCCINATE EXT REL 50 MG TABCR PO ×2 (08:17→20:22)
[2023-03-10] MEDS: ALPRAZolam (*CRX) 0.25 MG TABLET PO (08:18)
[2023-03-10] MEDS: ENOXAPARIN 40 MG/0.4 ML SYRINGE SUB-Q (08:18)
[2023-03-10 08:46] LABS: Basophils Percent Auto 0.2 % (0.2-1.2); Hematocrit 39.2 % (37.0-47.0); Hemoglobin 12.6 g/dL (12.0-15.0); Immature Granulocyte Absolute 0.12 K/mm3 (0.00-0.031); Immature Granulocyte Percent A 1.3 % (0-0.5); Lymphocytes Absolute Auto 0.77 K/mm3 (0.9-3.2); Lymphocytes Percent Auto 8.2 % (18.3-44.2); Mean Corpuscular HGB Conc 32.1 g/dl (32-36); Mean Corpuscular Hemoglobin 29.4 pg (26-34); Mean Corpuscular Volume 91.6 fl (80-100); Mean Platelet Volume 10.4 fl (7.4-10.4); Monocytes Absolute Auto 0.1 K/mm3 (0.1-0.6); Monocytes Percent Auto 1.3 % (2.6-8.5); Neutrophils Absolute Auto 8.3 K/mm3 (1.3-6.7); Platelet Count Result 228 k/mm3 (150-375); Red Blood Count 4.28 M/mm3 (4.2-5.4); Red Cell Distribution Width 12.9 % (11.5-14.5); White Blood Count 9.4 K/mm3 (4.5-10.0)
[2023-03-10 08:56] LABS: Anion Gap 11 mmol/L (8-16); Blood Urea Nitrogen 20 mg/dL (7-17); Carbon Dioxide 21 mmol/L (22-30); Chloride 100 mmol/L (98-107); Estimated CRCL calculation 48 ml/min; Estimated Glomerular Filt Rate > 60; Glucose 244 mg/dL (65-110); Potassium 4.3 mmol/L (3.4-5.0); Sodium 132 mmol/L (137-145)
--- NOTE | 2023-03-10 09:01 | PM.IMHP ---
H&P: HPI History of Present Illness Date/Time: 03/10/23 09:01 Chief Complaint: altered mental status Narrative: 82yo woman history of CVA, vascular dementia, brought by daughter with concern for worsening mental status, increased lethargy, sluggishness, poor responsiveness, and concern for possible new stroke or TIA. She was recently diagnosed COVID about 10 days ago. Treated with Paxil a bit however did not tolerate and hence stopped. She has been having some cough and congestion which still is persistent. Denies any fever chills. Went to see her regular doctor yesterday and had some concern with tiredness and weakness. And hence sent to the ER for evaluation. CT head was negative. Chest x-ray showed some interstitial edema. She is admitted for further treatment and evaluation. Daughter at bedside and discussed with her. She has chronic right eye ptosis. Review of Systems Review of Systems: - CONSTITUTIONAL: Denies weight loss, fever and chills. - HEENT: Denies changes in vision and hearing - RESPIRATORY: Denies SOB and cough. - CV: Denies palpitations and CP. - GI: Denies abdominal pain, nausea, vomiting and diarrhea. - : Denies dysuria and urinary frequency. - MSK: Denies myalgia and joint pain. - SKIN: Denies rash and pruritus. - NEUROLOGICAL: Denies headache and syncope. - PSYCHIATRIC: Denies recent changes in mood. Denies anxiety and depression. COUNT INCLUDES THE [facility] Social History Social History Smoking status: Never smoker Alcohol intake: never Substance use: never Spiritual care concerns: No Meds Home Medications and Allergies Home Medications Medication Instructions Recorded Confirmed Type alprazolam 0.5 mg tablet 0.25 mg PO DAILY 03/09/23 03/09/23 History atorvastatin 40 mg tablet 40 mg PO HS 03/09/23 03/09/23 History donepezil 10 mg tablet 10 mg PO HS 03/09/23 03/09/23 History lisinopril 10 mg tablet 10 mg PO HS 03/09/23 03/09/23 History metformin 500 mg tablet,extended 500 mg PO BID 03/09/23 03/09/23 History release 24 hr metoprolol succinate 50 mg 50 mg PO BID 03/09/23 03/09/23 History tablet,extended release 24 hr Allergies Allergy/AdvReac Type Severity Reaction Status Date / Time No Known Allergies Allergy Verified 03/09/23 16:15 Vital Signs Vital Signs - 24 hr 03/09/23 23:12 03/09/23 23:51 03/10/23 00:00 Temperature 97.7 F Pulse Rate 75 73 Respiratory Rate 16 Blood Pressure 134/61 Pulse Oximetry 97 Oxygen Delivery Room Air 03/10/23 04:00 03/10/23 05:00 03/10/23 08:17 Temperature 97.6 F Pulse Rate 95 96 90 Respiratory Rate 14 Blood Pressure 174/82 H Pulse Oximetry 99 Oxygen Delivery 03/10/23 08:40 Temperature Pulse Rate Respiratory Rate Blood Pressure Pulse Oximetry Oxygen Delivery Room Air Exam Narrative: Const:?? Generalized weakness not in acute distress lethargic Eyes:?? Conjunctivae: conjunctivae normal Resp:?? Effort & Inspection: normal respiratory effort? Auscultation: clear to auscultation bilaterally Cardio:?? Rate: regular rate? Rhythm: regular rhythm? Heart sounds: no murmurs GI:?? Inspection: non-distended? GI Palp: Yes Soft to palpation and No Tenderness to palpation present (GI) Skin:?? General skin exam: normal color, no jaundice and no pallor Neuro:?? oriented only to self, follows commands, EOMI, has symmetric strength both arms with no drift right eye ptosis which is chronic ?Extrem:?? General: no clubbing, cyanosis or edema H&P: Results Labs Labs: Short CBC 03/10/23 Range/Units 08:40 WBC 9.4 (4.5-10.0) K/mm3 Hgb 12.6 (12.0-15.0) g/dL Hct 39.2 (37.0-47.0) % Plt Count 228 (150-375) k/mm3 BMP 03/10/23 08:40 Sodium 132 L Potassium 4.3 Chloride 100 Carbon Dioxide 21 L BUN 20 H Creatinine 0.60 L Glucose 244 H Calcium 9.0 Assessment and Plan Assessment and plan (1) General
[2023-03-10 09:45] LABS: Hemoglobin A1C 7.8 % (<5.7)
--- NOTE | 2023-03-10 11:19 | PCSTNOTE ---
Bedside swallowing evaluation completed. Patient was seen sitting at edge of bed with daughter present and providing assistance. Cursory oral peripheral examination results within functional limits (generalized weakness). Multiple trials of thin liquid by straw in uncontrolled amounts were given and no signs of aspiration were observed. Trials of pudding by spoon and fruit cocktail by spoon were also given and patient showed no signs of aspiration. As a safety precaution for generalized weakness and reduced cognitive abilities patient and daughter were trained on safe swallowing precautions including chin tuck, forceful swallow, and multiple swallows per bolus. Patient required moderate cues to achieve and will likely need reminders. Daughter and nurse notified. Please note that silent aspiration cannot be ruled out at bedside and can be evaluated with a modified barium swallow study. No further speech therapy is recommended at this time. Thank you for the referral of this patient.
[2023-03-10 12:25] LABS: Glucose Point of Care 274 mg/dl (65-105)
[2023-03-10] MEDS: INSULIN ASPART (*BKC) 100 UNITS/ML SUB-Q ×2 (12:35→17:32)
[2023-03-10 17:00] LABS: Glucose Point of Care 267 mg/dl (65-105)
[2023-03-10] MEDS: lisinopriL 10 MG TABLET PO (20:22)
[2023-03-10] MEDS: ATORVASTATIN 40 MG TABLET PO (20:23)
[2023-03-10] MEDS: DONEPEZIL HCL 10 MG TABLET PO (20:23)
[2023-03-10 21:10] LABS: Glucose Point of Care 323 mg/dl (65-105)
[2023-03-10] MEDS: INSULIN ASPART (*BKC) 100 UNITS/ML 6 UNITS SUB-Q (21:45)
[2023-03-11] VITALS (11 sets, daily range): BP systolic 105–139; BP diastolic 50–61; PULSE 58–84; RESP 12–17; TEMP 36.6–36.8; O2SAT 95–98
[2023-03-11] MEDS: AZITHROMYCIN 500 MG/NS 250 ML 500 MG/250 ML BAG 250 MG IVPB (04:59)
[2023-03-11 05:28] LABS: Basophils Percent Auto 0.1 % (0.2-1.2); Hematocrit 34.6 % (37.0-47.0); Hemoglobin 11.4 g/dL (12.0-15.0); Immature Granulocyte Absolute 0.12 K/mm3 (0.00-0.031); Immature Granulocyte Percent A 1.3 % (0-0.5); Lymphocytes Absolute Auto 0.85 K/mm3 (0.9-3.2); Lymphocytes Percent Auto 8.9 % (18.3-44.2); Mean Corpuscular HGB Conc 32.9 g/dl (32-36); Mean Corpuscular Hemoglobin 30.1 pg (26-34); Mean Corpuscular Volume 91.3 fl (80-100); Mean Platelet Volume 10.7 fl (7.4-10.4); Monocytes Absolute Auto 0.8 K/mm3 (0.1-0.6); Monocytes Percent Auto 8.2 % (2.6-8.5); Neutrophils Absolute Auto 7.8 K/mm3 (1.3-6.7); Neutrophils Percent Auto 81.5 % (45.5-73.1); Platelet Count Result 233 k/mm3 (150-375); Red Blood Count 3.79 M/mm3 (4.2-5.4); White Blood Count 9.6 K/mm3 (4.5-10.0)
[2023-03-11 05:49] LABS: Alanine Aminotransferase 20 U/L (6-35); Albumin Level 3.8 g/dL (3.5-5.1); Alkaline Phosphatase 73 U/L (38-126); Anion Gap 7 mmol/L (8-16); Aspartate Amino Transferase 25 U/L (14-36); Bilirubin,Total 0.8 mg/dL (0.2-1.3); Blood Urea Nitrogen 24 mg/dL (7-17); Calcium 9.1 mg/dL (8.4-10.2); Carbon Dioxide 24 mmol/L (22-30); Chloride 99 mmol/L (98-107); Estimated CRCL calculation 56 ml/min; Estimated Glomerular Filt Rate > 60; Glucose 207 mg/dL (65-110); Potassium 4.1 mmol/L (3.4-5.0); Sodium 130 mmol/L (137-145)
[2023-03-11] MEDS: cefTRIAXone 2 GM/NS 100 ML 2 GM/100 ML BAG IVPB (06:10)
[2023-03-11 08:04] LABS: Glucose Point of Care 201 mg/dl (65-105)
[2023-03-11] MEDS: INSULIN ASPART (*BKC) 100 UNITS/ML SUB-Q ×4 (08:52→20:15)
[2023-03-11] MEDS: ENOXAPARIN 40 MG/0.4 ML SYRINGE SUB-Q (09:15)
[2023-03-11] MEDS: METOPROLOL SUCCINATE EXT REL 50 MG TABCR PO (09:15)
[2023-03-11] MEDS: ALPRAZolam (*CRX) 0.25 MG TABLET PO (09:15)
--- NOTE | 2023-03-11 11:31 | PM.IMPN ---
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 Chest x-ray with minimal infiltrate or atelectasis at the lung bases. Repeat chest x-ray with mild interstitial edema. STOPPED IV FLUIDS. Possible pneumonia. STARTED on ceftriaxone azithromycin as ordered. PT OT to see MRI BRAIN IS NEGATIVE FOR ANY ACUTE STROKE. CT head is negative Recent COVID infection Type 2 diabetes mellitus Hypertension Hyperlipidemia Vascular dementia Mild hyponatremia Possible dehydration Lactic acidosis DVT prophylaxis Lovenox Code status do not resuscitate Subjective Date/time seen: 03/11/23 11:31 Interval history: PATIENT MORE ALERT AND ORIENTED TODAY SHE IS MORE CONVERSANT. DENIES ANY NEW COMPLAINTS. SHE FEELING BETTER WORK WITH THERAPY YESTERDAY. SOME COUGH NO SHORTNESS OF BREATH Review of Systems Review of Systems: All systems reviewed & are unremarkable except as noted in HPI and below Exam Narrative: Const:?? Generalized weakness not in acute distress MORE AWAKE AND ATTENTIVE Eyes:?? Conjunctivae: conjunctivae normal Resp:?? Effort & Inspection: normal respiratory effort? Auscultation: clear to auscultation bilaterally Cardio:?? Rate: regular rate? Rhythm: regular rhythm? Heart sounds: no murmurs GI:?? Inspection: non-distended? GI Palp: Yes Soft to palpation and No Tenderness to palpation present (GI) Skin:?? General skin exam: normal color, no jaundice and no pallor Neuro:?? ALERT AND ORIENTED X2, Follows commands, EOMI, has symmetric strength both arms with no drift right eye ptosis which is chronic ?Extrem:?? General: no clubbing, cyanosis or edema Objective Data Vital Signs Vital Signs: Vital Signs - 24 hr 03/10/23 12:00 03/10/23 11:51 03/10/23 14:45 Temperature 98.4 F Pulse Rate 58 L 54 L Respiratory Rate 16 Blood Pressure 97/68 L Pulse Oximetry 97 Oxygen Delivery Room Air 03/10/23 16:00 03/10/23 20:22 03/10/23 20:25 Temperature 98.2 F Pulse Rate 63 60 87 Respiratory Rate 16 Blood Pressure 121/53 L Pulse Oximetry 98 Oxygen Delivery 03/10/23 20:00 03/11/23 00:00 03/11/23 05:33 Temperature 98.2 F Pulse Rate 82 77 72 Respiratory Rate 16 Blood Pressure 134/61 Pulse Oximetry 98 Oxygen Delivery 03/11/23 04:00 03/11/23 09:15 03/11/23 09:20 Temperature Pulse Rate 60 62 Respiratory Rate Blood Pressure Pulse Oximetry Oxygen Delivery Room Air 03/11/23 08:00 Temperature Pulse Rate 60 Respiratory Rate Blood Pressure Pulse Oximetry Oxygen Delivery Intake/Output Intake/Output: Intake & Output 03/08/23 03/09/23 03/10/23 03/11/23 23:59 23:59 23:59 23:59 Intake Total 1290 740 Output Total 350 Balance 940 740 Meds/Results Medications: Active Medications Generic Name Dose Route Start Last Admin Trade Name Freq PRN Reason Stop Dose Admin Acetaminophen 650 mg 03/10/23 05:29 Acetaminophen 325 Mg Tablet PO Q4H PRN Mild Pain (1-3) or Fever Al Hydrox/Mg Hydrox/Simethicone 30 ml 03/10/23 05:29 Mag Hydrox/Al Hydrox/Simeth 30 Ml Udc PO QID PRN Dyspepsia Alprazolam 0.25 mg 03/10/23 09:00 03/11/23 09:15 Alprazolam (*Crx) 0.25 Mg Tablet PO 0.25 mg DAILY YUSUF Administration Atorvastatin Calcium 40 mg 03/10/23 21:00 03/10/23 20:23 Atorvastatin 40 Mg Tablet PO 40 mg HS YUSUF Administration Dextrose 12.5 gm 03/10/23 09:00 Dextrose 50% 25 Gm/50 Ml Syringe IV PUSH PRN PRN Hypoglycemia Protocol Donepezil HCl 10 mg 03/10/23 21:00 03/10/23 20:23 Donepezil Hcl 10 Mg Tablet PO 10 mg
[2023-03-11 11:46] LABS: Glucose Point of Care 210 mg/dl (65-105)
[2023-03-11 16:57] LABS: Glucose Point of Care 237 mg/dl (65-105)
[2023-03-11 19:28] LABS: Glucose Point of Care 298 mg/dl (65-105)
[2023-03-11] MEDS: ATORVASTATIN 40 MG TABLET PO (20:10)
[2023-03-11] MEDS: DONEPEZIL HCL 10 MG TABLET PO (20:11)
[2023-03-12] VITALS (14 sets, daily range): BP systolic 122–151; BP diastolic 57–70; PULSE 54–75; RESP 14–18; TEMP 36.2–37; O2SAT 94–98
[2023-03-12] MEDS: AZITHROMYCIN 500 MG/NS 250 ML 500 MG/250 ML BAG 250 MG IVPB (05:03)
[2023-03-12 05:33] LABS: Basophils Percent Auto 0.1 % (0.2-1.2); Eosinophils Absolute Auto 0.1 K/mm3 (0-0.3); Eosinophils Percent Auto 0.7 % (0-4.4); Hematocrit 36.7 % (37.0-47.0); Hemoglobin 11.7 g/dL (12.0-15.0); Immature Granulocyte Absolute 0.06 K/mm3 (0.00-0.031); Immature Granulocyte Percent A 0.9 % (0-0.5); Lymphocytes Absolute Auto 2.04 K/mm3 (0.9-3.2); Lymphocytes Percent Auto 29.3 % (18.3-44.2); Mean Corpuscular HGB Conc 31.9 g/dl (32-36); Mean Corpuscular Volume 94.1 fl (80-100); Mean Platelet Volume 10.3 fl (7.4-10.4); Monocytes Absolute Auto 0.6 K/mm3 (0.1-0.6); Neutrophils Absolute Auto 4.2 K/mm3 (1.3-6.7); Platelet Count Result 228 k/mm3 (150-375); Red Cell Distribution Width 12.9 % (11.5-14.5)
[2023-03-12 05:53] LABS: Alanine Aminotransferase 25 U/L (6-35); Albumin Level 3.8 g/dL (3.5-5.1); Alkaline Phosphatase 69 U/L (38-126); Anion Gap 6 mmol/L (8-16); Aspartate Amino Transferase 28 U/L (14-36); Bilirubin,Total 0.8 mg/dL (0.2-1.3); Blood Urea Nitrogen 28 mg/dL (7-17); Calcium 9.1 mg/dL (8.4-10.2); Carbon Dioxide 27 mmol/L (22-30); Chloride 99 mmol/L (98-107); Estimated CRCL calculation 41 ml/min; Estimated Glomerular Filt Rate > 60; Glucose 158 mg/dL (65-110); Magnesium 1.9 mg/dL (1.6-2.3); Potassium 4.2 mmol/L (3.4-5.0); Sodium 132 mmol/L (137-145)
[2023-03-12] MEDS: cefTRIAXone 2 GM/NS 100 ML 2 GM/100 ML BAG IVPB (06:02)
[2023-03-12 08:20] LABS: Glucose Point of Care 129 mg/dl (65-105)
[2023-03-12 08:21] LABS: Glucose Point of Care 129 mg/dl (65-105)
[2023-03-12] MEDS: ALPRAZolam (*CRX) 0.25 MG TABLET PO (08:39)
[2023-03-12] MEDS: ENOXAPARIN 40 MG/0.4 ML SYRINGE SUB-Q (08:39)
[2023-03-12] MEDS: METOPROLOL SUCCINATE EXT REL 50 MG TABCR PO ×2 (08:39→20:54)
[2023-03-12 11:25] LABS: Glucose Point of Care 191 mg/dl (65-105)
--- NOTE | 2023-03-12 13:21 | PM.IMPN ---
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 Chest x-ray with minimal infiltrate or atelectasis at the lung bases. Repeat chest x-ray with mild interstitial edema. STOPPED IV FLUIDS. Possible pneumonia. STARTED on ceftriaxone azithromycin as ordered. PT OT to see MRI BRAIN IS NEGATIVE FOR ANY ACUTE STROKE. CT head is negative Recent COVID infection Type 2 diabetes mellitus Hypertension Hyperlipidemia Vascular dementia Mild hyponatremia Possible dehydration Lactic acidosis DVT prophylaxis Lovenox Code status do not resuscitate Disposition lives alone at home needs another living arrangement maybe SNF at discharge Subjective Date/time seen: 03/12/23 13:21 Interval history: No overnight events. Patient is sitting up in the chair eating her meal. Daughter at bedside. Work with therapy. She lived alone prior to this Review of Systems Review of Systems: All systems reviewed & are unremarkable except as noted in HPI and below Exam Narrative: Const:?? Generalized weakness not in acute distress MORE AWAKE AND ATTENTIVE Eyes:?? Conjunctivae: conjunctivae normal Resp:?? Effort & Inspection: normal respiratory effort? Auscultation: clear to auscultation bilaterally Cardio:?? Rate: regular rate? Rhythm: regular rhythm? Heart sounds: no murmurs GI:?? Inspection: non-distended? GI Palp: Yes Soft to palpation and No Tenderness to palpation present (GI) Skin:?? General skin exam: normal color, no jaundice and no pallor Neuro:?? ALERT AND ORIENTED X2, Follows commands, EOMI, has symmetric strength both arms with no drift right eye ptosis which is chronic ?Extrem:?? General: no clubbing, cyanosis or edema Objective Data Vital Signs Vital Signs: Vital Signs - 24 hr 03/11/23 14:05 03/11/23 16:00 03/11/23 20:12 Temperature 97.9 F 98.0 F Pulse Rate 84 69 67 Respiratory Rate 12 17 Blood Pressure 115/59 L 105/50 L Pulse Oximetry 95 95 Oxygen Delivery 03/11/23 20:00 03/11/23 23:30 03/12/23 00:04 Temperature 97.8 F Pulse Rate 64 67 55 L Respiratory Rate 17 Blood Pressure 139/53 L Pulse Oximetry 97 Oxygen Delivery 03/12/23 03:58 03/12/23 04:00 03/12/23 08:39 Temperature 98.6 F Pulse Rate 63 54 L 64 Respiratory Rate 17 Blood Pressure 148/70 H Pulse Oximetry 98 Oxygen Delivery 03/12/23 08:41 03/12/23 08:58 03/12/23 08:00 Temperature 97.2 F L 97.2 F L Pulse Rate 64 64 64 Respiratory Rate 14 14 Blood Pressure 146/57 H 146/57 H Pulse Oximetry 97 96 Oxygen Delivery 03/12/23 12:58 03/12/23 12:00 03/12/23 08:00 Temperature Pulse Rate 75 62 Respiratory Rate Blood Pressure Pulse Oximetry Oxygen Delivery Room Air Intake/Output Intake/Output: Intake & Output 03/09/23 03/10/23 03/11/23 03/12/23 23:59 23:59 23:59 23:59 Intake Total 1290 2270 250 Output Total 350 200 Balance 940 2070 250 Meds/Results Medications: Active Medications Generic Name Dose Route Start Last Admin Trade Name Freq PRN Reason Stop Dose Admin Acetaminophen 650 mg 03/10/23 05:29 Acetaminophen 325 Mg Tablet PO Q4H PRN Mild Pain (1-3) or Fever Al Hydrox/Mg Hydrox/Simethicone 30 ml 03/10/23 05:29 Mag Hydrox/Al Hydrox/Simeth 30 Ml Udc PO QID PRN Dyspepsia Alprazolam 0.25 mg 03/10/23 09:00 03/12/23 08:39 Alprazolam (*Crx) 0.25 Mg Tablet PO 0.25 mg DAILY YUSUF Administration Amoxicillin/Clavulanate Potassium 1 tablet 03/13/23 09:00 Amoxicillin/Clavulanate K 875-125 Mg Tab PO 03/14/23 21:01 Q12HR YUSUF Atorvastatin Calcium 40 mg 03/10/23
--- NOTE | 2023-03-12 15:17 | PC.NURSE ---
Assessment, care and medications performed by Qiana MERLOS Student RN under supervision of instructor and hospital staff. Assessment reviewed and agree with same.
[2023-03-12 16:38] LABS: Glucose Point of Care 211 mg/dl (65-105)
[2023-03-12] MEDS: INSULIN ASPART (*BKC) 100 UNITS/ML SUB-Q (17:41)
[2023-03-12 19:47] LABS: Glucose Point of Care 210 mg/dl (65-105)
[2023-03-12] MEDS: DONEPEZIL HCL 10 MG TABLET PO (20:54)
[2023-03-12] MEDS: ATORVASTATIN 40 MG TABLET PO (20:54)
[2023-03-12] MEDS: lisinopriL 10 MG TABLET PO (20:54)
[2023-03-13] VITALS (11 sets, daily range): BP systolic 110–166; BP diastolic 59–72; PULSE 57–85; RESP 14–17; TEMP 36.6–36.8; O2SAT 97–100
[2023-03-13 05:40] LABS: Basophils Percent Auto 0.5 % (0.2-1.2); Eosinophils Absolute Auto 0.1 K/mm3 (0-0.3); Eosinophils Percent Auto 1.5 % (0-4.4); Hematocrit 38.3 % (37.0-47.0); Hemoglobin 12.5 g/dL (12.0-15.0); Immature Granulocyte Absolute 0.06 K/mm3 (0.00-0.031); Immature Granulocyte Percent A 0.8 % (0-0.5); Lymphocytes Percent Auto 24.1 % (18.3-44.2); Mean Corpuscular HGB Conc 32.6 g/dl (32-36); Mean Corpuscular Hemoglobin 29.8 pg (26-34); Mean Corpuscular Volume 91.4 fl (80-100); Mean Platelet Volume 9.9 fl (7.4-10.4); Monocytes Absolute Auto 0.8 K/mm3 (0.1-0.6); Monocytes Percent Auto 9.5 % (2.6-8.5); Neutrophils Percent Auto 63.6 % (45.5-73.1); Platelet Count Result 259 k/mm3 (150-375); Red Blood Count 4.19 M/mm3 (4.2-5.4); Red Cell Distribution Width 12.7 % (11.5-14.5); White Blood Count 7.9 K/mm3 (4.5-10.0)
[2023-03-13 06:05] LABS: Anion Gap 6 mmol/L (8-16); Blood Urea Nitrogen 18 mg/dL (7-17); Calcium 9.4 mg/dL (8.4-10.2); Carbon Dioxide 27 mmol/L (22-30); Chloride 98 mmol/L (98-107); Estimated CRCL calculation 48 ml/min; Estimated Glomerular Filt Rate > 60; Glucose 176 mg/dL (65-110); Magnesium 1.8 mg/dL (1.6-2.3); Potassium 4.1 mmol/L (3.4-5.0); Sodium 131 mmol/L (137-145)
[2023-03-13 08:22] LABS: Glucose Point of Care 182 mg/dl (65-105)
[2023-03-13] MEDS: AMOXICILLIN/CLAVULANATE K 875-125 MG TAB 1 TABLET PO ×2 (09:02→21:17)
[2023-03-13] MEDS: ALPRAZolam (*CRX) 0.25 MG TABLET PO (09:02)
[2023-03-13] MEDS: AZITHROMYCIN 250 MG TABLET 500 MG PO (09:02)
[2023-03-13] MEDS: METOPROLOL SUCCINATE EXT REL 50 MG TABCR PO ×2 (09:03→21:17)
[2023-03-13] MEDS: ENOXAPARIN 40 MG/0.4 ML SYRINGE SUB-Q (09:06)
[2023-03-13 12:40] LABS: Glucose Point of Care 217 mg/dl (65-105)
[2023-03-13] MEDS: INSULIN ASPART (*BKC) 100 UNITS/ML SUB-Q ×2 (12:55→17:22)
--- NOTE | 2023-03-13 13:36 | PM.IMPN ---
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 Chest x-ray with minimal infiltrate or atelectasis at the lung bases. Repeat chest x-ray with mild interstitial edema. STOPPED IV FLUIDS. Possible pneumonia. STARTED on ceftriaxone azithromycin as ordered. PT OT to see MRI BRAIN IS NEGATIVE FOR ANY ACUTE STROKE. CT head is negative. Antibiotics switched to oral and finish the course as ordered Recent COVID infection Type 2 diabetes mellitus Hypertension Hyperlipidemia Vascular dementia Mild hyponatremia Possible dehydration Lactic acidosis DVT prophylaxis Lovenox Code status do not resuscitate Disposition lives alone at home needs another living arrangement maybe SNF at discharge . Pending placement Subjective Date/time seen: 03/13/23 13:36 Interval history: no new complaints feels okay. Discussed with the nursing staff. Review of Systems Review of Systems: All systems reviewed & are unremarkable except as noted in HPI and below Exam Narrative: Const:?? Generalized weakness not in acute distress MORE AWAKE AND ATTENTIVE Eyes:?? Conjunctivae: conjunctivae normal Resp:?? Effort & Inspection: normal respiratory effort? Auscultation: clear to auscultation bilaterally Cardio:?? Rate: regular rate? Rhythm: regular rhythm? Heart sounds: no murmurs GI:?? Inspection: non-distended? GI Palp: Yes Soft to palpation and No Tenderness to palpation present (GI) Skin:?? General skin exam: normal color, no jaundice and no pallor Neuro:?? ALERT AND ORIENTED X2, Follows commands, EOMI, has symmetric strength both arms with no drift right eye ptosis which is chronic ?Extrem:?? General: no clubbing, cyanosis or edema Objective Data Vital Signs Vital Signs: Vital Signs - 24 hr 03/12/23 14:32 03/12/23 16:19 03/12/23 16:00 Temperature 97.7 F 97.5 F L Pulse Rate 66 63 67 Respiratory Rate 18 16 Blood Pressure 122/60 144/60 H Pulse Oximetry 95 97 Oxygen Delivery 03/12/23 20:13 03/12/23 20:54 03/12/23 20:45 Temperature 97.9 F Pulse Rate 70 70 Respiratory Rate 17 Blood Pressure 151/61 H Pulse Oximetry 94 Oxygen Delivery Room Air 03/12/23 20:00 03/13/23 00:00 03/13/23 04:00 Temperature Pulse Rate 71 60 57 L Respiratory Rate Blood Pressure Pulse Oximetry Oxygen Delivery 03/13/23 05:19 03/13/23 09:03 03/13/23 09:06 Temperature 98.2 F 98 F Pulse Rate 72 70 76 Respiratory Rate 17 14 Blood Pressure 141/66 H 166/72 H Pulse Oximetry 100 97 Oxygen Delivery 03/13/23 09:05 03/13/23 08:00 Temperature Pulse Rate 70 Respiratory Rate Blood Pressure Pulse Oximetry Oxygen Delivery Room Air Intake/Output Intake/Output: Intake & Output 03/10/23 03/11/23 03/12/23 03/13/23 23:59 23:59 23:59 23:59 Intake Total 1290 2270 1490 460 Output Total 350 200 Balance 940 2070 1490 460 Meds/Results Medications: Active Medications Generic Name Dose Route Start Last Admin Trade Name Freq PRN Reason Stop Dose Admin Acetaminophen 650 mg 03/10/23 05:29 Acetaminophen 325 Mg Tablet PO Q4H PRN Mild Pain (1-3) or Fever Al Hydrox/Mg Hydrox/Simethicone 30 ml 03/10/23 05:29 Mag Hydrox/Al Hydrox/Simeth 30 Ml Udc PO QID PRN Dyspepsia Alprazolam 0.25 mg 03/10/23 09:00 03/13/23 09:02 Alprazolam (*Crx) 0.25 Mg Tablet PO 0.25 mg DAILY YUSUF Administration Amoxicillin/Clavulanate Potassium 1 tablet 03/13/23 09:00 03/13/23 09:02 Amoxicillin/Clavulanate K 875-125 Mg Tab PO 03/14/23 21:01 1 tablet Q12HR YUSUF Administration Atorvastatin Calcium 40 mg
[2023-03-13 17:20] LABS: Glucose Point of Care 310 mg/dl (65-105)
[2023-03-13] MEDS: lisinopriL 10 MG TABLET PO (21:17)
[2023-03-13] MEDS: ATORVASTATIN 40 MG TABLET PO (21:17)
[2023-03-13] MEDS: DONEPEZIL HCL 10 MG TABLET PO (21:18)
[2023-03-13 21:47] LABS: Glucose Point of Care 168 mg/dl (65-105)
[2023-03-14] VITALS (11 sets, daily range): BP systolic 122–137; BP diastolic 54–72; PULSE 65–83; RESP 16–18; TEMP 36.4–36.6; O2SAT 97–100
[2023-03-14 08:38] LABS: Glucose Point of Care 191 mg/dl (65-105)
--- NOTE | 2023-03-14 11:10 | PCOTNOTE ---
Patient declined at this time. Patient stated, I'm cranky, leave me alone right now .
[2023-03-14] MEDS: ALPRAZolam (*CRX) 0.25 MG TABLET PO (11:40)
[2023-03-14] MEDS: METOPROLOL SUCCINATE EXT REL 50 MG TABCR PO ×2 (11:40→20:24)
[2023-03-14] MEDS: AZITHROMYCIN 250 MG TABLET 500 MG PO (11:40)
[2023-03-14] MEDS: AMOXICILLIN/CLAVULANATE K 875-125 MG TAB 1 TABLET PO ×2 (11:40→20:24)
[2023-03-14] MEDS: ENOXAPARIN 40 MG/0.4 ML SYRINGE SUB-Q (11:41)
[2023-03-14 12:32] LABS: Glucose Point of Care 218 mg/dl (65-105)
[2023-03-14] MEDS: INSULIN ASPART (*BKC) 100 UNITS/ML SUB-Q ×2 (14:02→17:27)
--- NOTE | 2023-03-14 14:09 | PM.IMPN ---
Progress Note: A&P Assessment and Plan (1) Post-COVID syndrome: Code(s): U09.9 - Post COVID-19 condition, unspecified Status: Acute (2) Altered mental status: Code(s): R41.82 - Altered mental status, unspecified Status: Acute (3) Generalized weakness: Code(s): R53.1 - Weakness Status: Acute Plan 82F w/ PMH CVA, vascular dementia, HTN, NIDDM, HLD presented with progressive lethargy, confusion, failure to thrive. Treated for COVID 10 days prior to admission with Paxil but stopped due to intolerance. Complains of cough and congestion. 1) covid-19 with encephalopathy - CT head neg, MRI marcel negative - monitor for worsening covid symptoms - treat for CAP 2) CAP - questionable, will finish suggested course of augmentin and azithromycin - monitor for worsening 3) NIDDM - accuchecks and sliding scale 4) dementia - in current state, unable to care for herself at home, she lives alone. pending insurance auth to SNF for rehab FEN: cardiac diabetic diet. saline lock IV GI prophylaxis: not indicated DVT prophylaxis: lovenox Lines: pIV Code Status: DNR Dispo: stable. pending insurance to go to rehab More than 25 minutes spent on chart review, patient interaction and assessment and plan. Subjective Date/time seen: 03/14/23 14:09 Interval history: NAOE. patient denies any complaints. she does admit to the cough still being persistent she denies chest pain, n/v/d. Review of Systems Review of Systems: All systems reviewed & are unremarkable except as noted in HPI and below Exam Const: General: comfortable and no acute distress Eyes: Pupils: Equal, round and reactive pupils present Resp: Effort & Inspection: normal respiratory effort Auscultation: clear to auscultation bilaterally Cardio: Rate: regular rate Rhythm: regular rhythm GI: Inspection: non-distended GI Palp: Yes Soft to palpation and No Tenderness to palpation present (GI) Auscultation: normal bowel sounds Extrem: General: no edema Objective Data Vital Signs Vital Signs: Vital Signs - 24 hr 03/13/23 16:00 03/13/23 16:00 03/13/23 21:13 Temperature 98.1 F 97.8 F Pulse Rate 85 70 63 Respiratory Rate 17 16 Blood Pressure 142/59 H 110/62 Pulse Oximetry 100 98 03/13/23 21:17 03/13/23 20:00 03/14/23 00:00 Temperature Pulse Rate 73 81 65 Respiratory Rate Blood Pressure Pulse Oximetry 03/14/23 04:00 03/14/23 04:24 03/14/23 11:40 Temperature 97.8 F Pulse Rate 78 72 76 Respiratory Rate 16 Blood Pressure 137/69 Pulse Oximetry 100 Intake/Output Intake/Output: Intake & Output 03/11/23 03/12/23 03/13/23 03/14/23 23:59 23:59 23:59 23:59 Intake Total 2270 1490 1440 490 Output Total 200 Balance 2070 1490 1440 490 Meds/Results Medications: Active Medications Generic Name Dose Route Start Last Admin Trade Name Freq PRN Reason Stop Dose Admin Acetaminophen 650 mg 03/10/23 05:29 Acetaminophen 325 Mg Tablet PO Q4H PRN Mild Pain (1-3) or Fever Al Hydrox/Mg Hydrox/Simethicone 30 ml 03/10/23 05:29 Mag Hydrox/Al Hydrox/Simeth 30 Ml Udc PO QID PRN Dyspepsia Alprazolam 0.25 mg 03/10/23 09:00 03/14/23 11:40 Alprazolam (*Crx) 0.25 Mg Tablet PO 0.25 mg DAILY YUSUF Administration Amoxicillin/Clavulanate Potassium 1 tablet 03/13/23 09:00 03/14/23 11:40 Amoxicillin/Clavulanate K 875-125 Mg Tab PO 03/14/23 21:01 1 tablet Q12HR YUSUF Administration Atorvastatin Calcium 40 mg 03/10/23 21:00 03/13/23 21:17 Atorvastatin 40 Mg Tablet PO 40 mg HS YUSUF Administration Dextrose 12.5 gm 03/10/23 09:00 Dextrose 50% 25 Gm/50 Ml Syringe IV PUSH PRN PRN Hypoglycemia Protocol Donepezil HCl 10 mg 03/10/23 21:00 03/13/23 21:18 Donepezil Hcl 10 Mg Tablet PO 10 mg HS YUSUF Administration Enoxaparin Sodium 40 mg 03/10/23 09:00 03/14/23 11:41 Enoxaparin 40 Mg/0.4 Ml Syringe SUB-Q 40 mg
[2023-03-14 17:02] LABS: Glucose Point of Care 247 mg/dl (65-105)
[2023-03-14] MEDS: ATORVASTATIN 40 MG TABLET PO (20:24)
[2023-03-14] MEDS: lisinopriL 10 MG TABLET PO (20:24)
[2023-03-14] MEDS: DONEPEZIL HCL 10 MG TABLET PO (20:24)
[2023-03-14 22:04] LABS: Glucose Point of Care 217 mg/dl (65-105)
[2023-03-15] VITALS (11 sets, daily range): BP systolic 106–147; BP diastolic 48–77; PULSE 65–86; RESP 14–18; TEMP 36.3–36.5; O2SAT 97–100
[2023-03-15 05:15] LABS: Anion Gap 7 mmol/L (8-16); Blood Urea Nitrogen 25 mg/dL (7-17); Carbon Dioxide 24 mmol/L (22-30); Chloride 97 mmol/L (98-107); Estimated CRCL calculation 41 ml/min; Estimated Glomerular Filt Rate > 60; Glucose 212 mg/dL (65-110); Potassium 4.1 mmol/L (3.4-5.0); Sodium 128 mmol/L (137-145)
--- NOTE | 2023-03-15 07:59 | PM.IMPN ---
Progress Note: A&P Assessment and Plan (1) Post-COVID syndrome: Code(s): U09.9 - Post COVID-19 condition, unspecified Status: Acute (2) Altered mental status: Code(s): R41.82 - Altered mental status, unspecified Status: Acute (3) Generalized weakness: Code(s): R53.1 - Weakness Status: Acute (4) Hyponatremia: Code(s): E87.1 - Hypo-osmolality and hyponatremia Status: Acute Plan 82F w/ PMH CVA, vascular dementia, HTN, NIDDM, HLD presented with progressive lethargy, confusion, failure to thrive. Treated for COVID 10 days prior to admission with Paxil but stopped due to intolerance. Complains of cough and congestion. 1) covid-19 with encephalopathy - CT head neg, MRI marcel negative - monitor for worsening covid symptoms - treat for CAP 2) CAP - questionable, will finish suggested course of augmentin and azithromycin - monitor for worsening 3) NIDDM - accuchecks and sliding scale 4) dementia - in current state, unable to care for herself at home, she lives alone. pending insurance auth to SNF for rehab 5) hyponatremia - check serum and urine osm + serum sodium. consult nephrology FEN: cardiac diabetic diet. saline lock IV GI prophylaxis: not indicated DVT prophylaxis: lovenox Lines: pIV Code Status: DNR Dispo: stable. pending insurance to go to rehab More than 25 minutes spent on chart review, patient interaction and assessment and plan. Subjective Date/time seen: 03/15/23 07:59 Interval history: NAOE. pt is without complaints. Review of Systems Review of Systems: All systems reviewed & are unremarkable except as noted in HPI and below Exam Const: General: comfortable and no acute distress Eyes: Pupils: Equal, round and reactive pupils present Resp: Effort & Inspection: normal respiratory effort Auscultation: clear to auscultation bilaterally Cardio: Rate: regular rate Rhythm: regular rhythm GI: GI Palp: Yes Soft to palpation Auscultation: normal bowel sounds Extrem: General: no edema Objective Data Vital Signs Vital Signs: Vital Signs - 24 hr 03/14/23 11:40 03/14/23 16:05 03/14/23 11:00 Temperature 97.7 F Pulse Rate 76 70 Respiratory Rate 18 Blood Pressure 129/72 Pulse Oximetry 97 Oxygen Delivery Room Air 03/14/23 08:00 03/14/23 12:00 03/14/23 16:00 Temperature Pulse Rate 73 76 83 Respiratory Rate Blood Pressure Pulse Oximetry Oxygen Delivery 03/14/23 19:49 03/14/23 20:24 03/14/23 20:00 Temperature 97.6 F Pulse Rate 71 70 71 Respiratory Rate 16 Blood Pressure 122/54 L Pulse Oximetry 99 Oxygen Delivery 03/15/23 00:00 03/15/23 04:00 03/15/23 04:09 Temperature 97.6 F Pulse Rate 65 74 70 Respiratory Rate 14 Blood Pressure 137/70 Pulse Oximetry 97 Oxygen Delivery Intake/Output Intake/Output: Intake & Output 03/12/23 03/13/23 03/14/23 03/15/23 23:59 23:59 23:59 23:59 Intake Total 1490 1440 960 100 Output Total 400 Balance 1490 1440 960 -300 Meds/Results Medications: Active Medications Generic Name Dose Route Start Last Admin Trade Name Freq PRN Reason Stop Dose Admin Acetaminophen 650 mg 03/10/23 05:29 Acetaminophen 325 Mg Tablet PO Q4H PRN Mild Pain (1-3) or Fever Al Hydrox/Mg Hydrox/Simethicone 30 ml 03/10/23 05:29 Mag Hydrox/Al Hydrox/Simeth 30 Ml Udc PO QID PRN Dyspepsia Alprazolam 0.25 mg 03/10/23 09:00 03/14/23 11:40 Alprazolam (*Crx) 0.25 Mg Tablet PO 0.25 mg DAILY YUSUF Administration Atorvastatin Calcium 40 mg 03/10/23 21:00 03/14/23 20:24 Atorvastatin 40 Mg Tablet PO 40 mg HS YUSUF Administration Dextrose 12.5 gm 03/10/23 09:00 Dextrose 50% 25 Gm/50 Ml Syringe IV PUSH PRN PRN Hypoglycemia Protocol Donepezil HCl 10 mg 03/10/23 21:00 03/14/23 20:24 Donepezil Hcl 10 Mg Tablet PO 10 mg HS YUSUF Administration Enoxaparin Sodium 40 mg
[2023-03-15 08:04] LABS: Glucose Point of Care 195 mg/dl (65-105)
[2023-03-15] MEDS: METOPROLOL SUCCINATE EXT REL 50 MG TABCR PO ×2 (09:00→20:36)
[2023-03-15] MEDS: ALPRAZolam (*CRX) 0.25 MG TABLET PO (09:00)
[2023-03-15 09:05] LABS: Basophils Absolute Auto 0.1 K/mm3 (0.0-0.1); Basophils Percent Auto 0.6 % (0.2-1.2); Eosinophils Absolute Auto 0.2 K/mm3 (0-0.3); Eosinophils Percent Auto 1.8 % (0-4.4); Hematocrit 37.9 % (37.0-47.0); Hemoglobin 12.3 g/dL (12.0-15.0); Immature Granulocyte Absolute 0.12 K/mm3 (0.00-0.031); Immature Granulocyte Percent A 1.2 % (0-0.5); Lymphocytes Absolute Auto 1.48 K/mm3 (0.9-3.2); Lymphocytes Percent Auto 14.4 % (18.3-44.2); Mean Corpuscular HGB Conc 32.5 g/dl (32-36); Mean Corpuscular Hemoglobin 29.9 pg (26-34); Mean Corpuscular Volume 92.2 fl (80-100); Mean Platelet Volume 10.7 fl (7.4-10.4); Monocytes Percent Auto 9.5 % (2.6-8.5); Neutrophils Absolute Auto 7.5 K/mm3 (1.3-6.7); Neutrophils Percent Auto 72.5 % (45.5-73.1); Platelet Count Result 252 k/mm3 (150-375); Red Blood Count 4.11 M/mm3 (4.2-5.4); Red Cell Distribution Width 13.1 % (11.5-14.5); White Blood Count 10.3 K/mm3 (4.5-10.0)
[2023-03-15] MEDS: ENOXAPARIN 40 MG/0.4 ML SYRINGE SUB-Q (09:05)
[2023-03-15 11:39] LABS: Glucose Point of Care 276 mg/dl (65-105)
[2023-03-15] MEDS: INSULIN ASPART (*BKC) 100 UNITS/ML SUB-Q (12:00)
--- NOTE | 2023-03-15 12:21 | PM.CNNEP ---
Assessment and Plan Assessment and plan (1) Hyponatremia: Code(s): E87.1 - Hypo-osmolality and hyponatremia Status: Acute Assessment and Plan: slow worsening since admission possibly related to previous COVID infection(?) sodium in normal range about a year ago....(but no labs in the interim to assess stability) no culptrit medications (thiazide diuretics, SSRIs, narcotics, PPIs...etc) CT and MRI of brain noted as well as CXR follow-up on serum/urine osmolality check urine electrolytes, TSH, cortisol, and SPEP/UPEP follow trend of repeat sodium levels (2) Altered mental status: Code(s): R41.82 - Altered mental status, unspecified Status: Acute Assessment and Plan: worse than baseline (alert and oriented x 1 currently) -- see #3 related to previous COVID infection?? progression of dementia(?) follow mentation (3) Dementia: Code(s): F03.90 - Unspecified dementia, unspecified severity, without behavioral disturbance, psychotic disturbance, mood disturbance, and anxiety Status: Acute Assessment and Plan: per family, at baseline she is alert and oriented x 2 continue supportive therapy I will continue follow patient with you while she remains hospitalized to make further recommendations as deemed necessary. Thank you for allowing me to participate in the care of this patient. History of Present Illness Reason for Consult Consult date: 03/15/23 Reason for consult: hyponatremia Chief Complaint Chief complaint: AMS History of Present Illness Narrative: Most of the information that I have obtained is from review of electronic medical record as well as discussion with the physician/ nurses involved in the patient's care as difficult to get a full and complete history from the patient given her confusion/altered mental status. The patient is an 82-year-old female with a past medical history as outlined below who presented to [facility] Emergency room for further evaluation of altered mental status / worsening confusion. The patient was recently diagnosed with Covid about 10 days ago and treated With appropriate medication/interventions however she did not tolerate this and this was stopped prematurely. Since that time she has been having some cough and congestion which is persistent but no reported fevers or chills. She went to see her regular primary care physician the day before presentation with the concerns of her ongoing weakness and fatigue. There was some concern that she may have had a neurological event and she was subsequently sent to the emergency room for further assessment. Workup and evaluation emergency room demonstrated a CT scan of her head which was negative and a chest x-ray showed some interstitial edema. Routine blood tests did not show any significant abnormalities other than mild hyponatremia which appears to be somewhat of a chronic issue/problem. Given her significant altered mentation with the concern for possible TIA are stroke despite negative imaging to date, she was admitted the hospital for further evaluation and therapy Since her admission, it has been noted that her sodium level has been slowly down trending. Given her worsening confusion, there was some concern that her hyponatremia may be playing a role with this. Renal consultation was requested due to her acute on chronic hyponatremia. From review records, the patient's hyponatremia has been present for a significant period of time although as already mentioned, and has worsened since her admission here to [facility]. Is difficult to say how much her hyponatremia is really playing a role with regard to her altered mental status as there is a concern that there may be some just simple progression of her underlying dementia as explanation for her mentation. Currently, at the time my evaluation, she appears to be in no acute distress. Review of Systems Re
[2023-03-15 13:59] LABS: Sodium Urine Random 50 meq/L
--- NOTE | 2023-03-15 14:30 | PC.NURSE ---
On 03/15/23, the student, [Shannan Cole], provided care and completed [facility] documentation on this patient. I have reviewed the student's documentation and agree with the findings.
[2023-03-15 16:29] LABS: Glucose Point of Care 158 mg/dl (65-105)
[2023-03-15] MEDS: lisinopriL 10 MG TABLET PO (20:36)
[2023-03-15] MEDS: DONEPEZIL HCL 10 MG TABLET PO (20:36)
[2023-03-15] MEDS: ATORVASTATIN 40 MG TABLET PO (20:36)
[2023-03-15 21:31] LABS: Glucose Point of Care 238 mg/dl (65-105)
[2023-03-16] VITALS (10 sets, daily range): BP systolic 112–128; BP diastolic 58–61; PULSE 60–79; RESP 18–20; TEMP 36.2–36.4; O2SAT 98–100; BMI 23.6
[2023-03-16 05:49] LABS: Basophils Absolute Auto 0.1 K/mm3 (0.0-0.1); Basophils Percent Auto 0.5 % (0.2-1.2); Eosinophils Absolute Auto 0.1 K/mm3 (0-0.3); Eosinophils Percent Auto 1.4 % (0-4.4); Hematocrit 38.4 % (37.0-47.0); Hemoglobin 12.2 g/dL (12.0-15.0); Immature Granulocyte Absolute 0.08 K/mm3 (0.00-0.031); Immature Granulocyte Percent A 0.9 % (0-0.5); Lymphocytes Absolute Auto 1.39 K/mm3 (0.9-3.2); Lymphocytes Percent Auto 15.2 % (18.3-44.2); Mean Corpuscular HGB Conc 31.8 g/dl (32-36); Mean Corpuscular Hemoglobin 29.3 pg (26-34); Mean Corpuscular Volume 92.3 fl (80-100); Mean Platelet Volume 10.4 fl (7.4-10.4); Monocytes Absolute Auto 0.8 K/mm3 (0.1-0.6); Monocytes Percent Auto 8.9 % (2.6-8.5); Neutrophils Absolute Auto 6.7 K/mm3 (1.3-6.7); Neutrophils Percent Auto 73.1 % (45.5-73.1); Platelet Count Result 246 k/mm3 (150-375); Red Blood Count 4.16 M/mm3 (4.2-5.4); Red Cell Distribution Width 13.1 % (11.5-14.5); White Blood Count 9.1 K/mm3 (4.5-10.0)
[2023-03-16 06:02] LABS: Anion Gap 6 mmol/L (8-16); Blood Urea Nitrogen 20 mg/dL (7-17); Calcium 9.3 mg/dL (8.4-10.2); Carbon Dioxide 28 mmol/L (22-30); Chloride 96 mmol/L (98-107); Estimated CRCL calculation 41 ml/min; Estimated Glomerular Filt Rate > 60; Glucose 195 mg/dL (65-110); Potassium 4.2 mmol/L (3.4-5.0); Sodium 130 mmol/L (137-145)
[2023-03-16 06:21] LABS: Procalcitonin 0.1 ng/mL
[2023-03-16 06:35] LABS: Thyroid Stimulating Hormone Reflex 0.642 uIU/mL (0.465-4.68)
[2023-03-16 08:08] LABS: Glucose Point of Care 191 mg/dl (65-105)
[2023-03-16] MEDS: METOPROLOL SUCCINATE EXT REL 50 MG TABCR PO ×2 (08:42→20:23)
[2023-03-16] MEDS: ENOXAPARIN 40 MG/0.4 ML SYRINGE SUB-Q (08:42)
[2023-03-16] MEDS: ALPRAZolam (*CRX) 0.25 MG TABLET PO (08:42)
[2023-03-16 09:52] LABS: Total Protein Urine Random 9 mg/dL; Ur Ttl Prot Creatinine Ratio 0.12 mg/mg (0-0.20); Urea Random Urine 789 MG/DL
--- NOTE | 2023-03-16 10:17 | PM.PNNEP ---
Progress Note: A&P Assessment and Plan (1) Hyponatremia: Code(s): E87.1 - Hypo-osmolality and hyponatremia Status: Acute Assessment and Plan: slow worsening since admission possibly related to previous COVID infection(?) sodium in normal range about a year ago....(but no labs in the interim to assess stability) no culptrit medications (thiazide diuretics, SSRIs, narcotics, PPIs...etc) CT and MRI of brain noted as well as CXR follow-up on serum/urine osmolality and SPEP/UPEP TSH and cortisol okay urine electrolyte suggest mild prerenal azotemia follow trend of repeat sodium levels (2) Altered mental status: Code(s): R41.82 - Altered mental status, unspecified Status: Acute Assessment and Plan: worse than baseline (alert and oriented x 1 currently) -- see #3 related to previous COVID infection?? progression of dementia(?) follow mentation (3) Dementia: Code(s): F03.90 - Unspecified dementia, unspecified severity, without behavioral disturbance, psychotic disturbance, mood disturbance, and anxiety Status: Acute Assessment and Plan: per family, at baseline she is alert and oriented x 2 continue supportive therapy Will continue to follow. Subjective Date/time seen: 03/16/23 10:17 Interval history: Follow-up for acute hyponatremia. Sodium seems to be improving (without any direct intervention); mentation seems bout the same (maybe a tad better); no apparent distress voiced; no other issues/events overnight or earlier this morning. Exam Narrative: General: elderly but WD/WN female in NAD Heart: normal S1 and S2; no rub Lungs: clear to auscultation Abdomen: soft, nontender, nondistended, positive bowel sounds Extremities: no cyanosis or clubbing; no edema Skin: warm and dry Objective Data Vital Signs Vital Signs: Vital Signs Temp Pulse Resp BP Pulse Ox O2 Del Method 03/16/23 08:00 100 Room Air 03/16/23 08:00 60 03/16/23 08:42 72 03/16/23 08:00 97.1 F L 72 18 125/58 L 100 03/16/23 04:00 65 03/16/23 03:52 97.3 F L 66 20 128/60 99 03/16/23 00:00 79 03/15/23 20:00 67 10/27/23 00:00 97.3 F L 69 18 118/58 L 99 03/15/23 20:00 Room Air 03/15/23 20:36 66 03/15/23 20:26 97.3 F L 66 18 106/48 L 97 03/15/23 16:00 75 03/15/23 16:00 97.7 F 73 16 138/64 100 Intake/Output Intake/Output: Intake & Output 03/13/23 03/14/23 03/15/23 03/16/23 23:59 23:59 23:59 23:59 Intake Total 5046 093 3494 358 Output Total 550 Balance 1440 960 698 358 Meds/Results Medications: Active Medications Generic Name Dose Route Start Last Admin Trade Name Freq PRN Reason Stop Dose Admin Acetaminophen 650 mg 03/10/23 05:29 Acetaminophen 325 Mg Tablet PO Q4H PRN Mild Pain (1-3) or Fever Al Hydrox/Mg Hydrox/Simethicone 30 ml 03/10/23 05:29 Mag Hydrox/Al Hydrox/Simeth 30 Ml Udc PO QID PRN Dyspepsia Alprazolam 0.25 mg 03/10/23 09:00 03/16/23 08:42 Alprazolam (*Crx) 0.25 Mg Tablet PO 0.25 mg DAILY YUSUF Administration Atorvastatin Calcium 40 mg 03/10/23 21:00 03/15/23 20:36 Atorvastatin 40 Mg Tablet PO 40 mg HS YUSUF Administration Dextrose 12.5 gm 03/10/23 09:00 Dextrose 50% 25 Gm/50 Ml Syringe IV PUSH PRN PRN Hypoglycemia Protocol Donepezil HCl 10 mg 03/10/23 21:00 03/15/23 20:36 Donepezil Hcl 10 Mg Tablet PO 10 mg HS YUSUF Administration Enoxaparin Sodium 40 mg 03/10/23 09:00 03/16/23 08:42 Enoxaparin 40 Mg/0.4 Ml Syringe SUB-Q 40 mg DAILY YUSUF Administration Glucagon 1 mg 03/10/23 09:00 Glucagon For Inj 1 Mg Vial IM PRN PRN Hypoglycemia Protocol Glucose 15 gm 03/10/23 09:00 Glucose Oral Gel 15 Gm Of Glucse In 37.5 Gm Tube PO PRN PRN Hypoglycemia Protocol Dextrose 1,000 mls @ 100 mls/hr 03/10/23 09
--- NOTE | 2023-03-16 10:17 | P.PNNP_ITS ---
Progress Note: A&P Assessment and Plan (1) Hyponatremia: Code(s): E87.1 - Hypo-osmolality and hyponatremia Status: Acute Assessment and Plan: * slow worsening since admission * possibly related to previous COVID infection(?) * sodium in normal range about a year ago....(but no labs in the interim to assess stability) * no culptrit medications (thiazide diuretics, SSRIs, narcotics, PPIs...etc) * CT and MRI of brain noted as well as CXR * follow-up on serum/urine osmolality and SPEP/UPEP * TSH and cortisol okay * urine electrolyte suggest mild prerenal azotemia * follow trend of repeat sodium levels (2) Altered mental status: Code(s): R41.82 - Altered mental status, unspecified Status: Acute Assessment and Plan: * worse than baseline (alert and oriented x 1 currently) -- see #3 * related to previous COVID infection?? * progression of dementia(?) * follow mentation (3) Dementia: Code(s): F03.90 - Unspecified dementia, unspecified severity, without behavioral disturbance, psychotic disturbance, mood disturbance, and anxiety Status: Acute Assessment and Plan: * per family, at baseline she is alert and oriented x 2 * continue supportive therapy Will continue to follow. Subjective Date/time seen: 03/16/23 10:17 Interval history: Follow-up for acute hyponatremia. Sodium seems to be improving (without any direct intervention); mentation seems bout the same (maybe a tad better); no apparent distress voiced; no other issues/events overnight or earlier this morning. Exam Narrative: General: elderly but WD/WN female in NAD Heart: normal S1 and S2; no rub Lungs: clear to auscultation Abdomen: soft, nontender, nondistended, positive bowel sounds Extremities: no cyanosis or clubbing; no edema Skin: warm and dry Objective Data Vital Signs Vital Signs: Vital Signs Temp Pulse Resp BP Pulse Ox O2 Del Method 03/16/23 08:00 100 Room Air 03/16/23 08:00 60 03/16/23 08:42 72 03/16/23 08:00 97.1 F L 72 18 125/58 L 100 03/16/23 04:00 65 03/16/23 03:52 97.3 F L 66 20 128/60 99 03/16/23 00:00 79 03/15/23 20:00 67 03/16/23 00:00 97.3 F L 69 18 118/58 L 99 03/15/23 20:00 Room Air 03/15/23 20:36 66 03/15/23 20:26 97.3 F L 66 18 106/48 L 97 03/15/23 16:00 75 03/15/23 16:00 97.7 F 73 16 138/64 100 Intake/Output Intake/Output: Intake & Output 03/13/23 03/14/23 03/15/23 03/16/23 23:59 23:59 23:59 23:59 Intake Total 3016 323 9427 358 Output Total 550 Balance 1440 960 698 358 Meds/Results Medications: Active Medications Generic Name Dose Route Start Last Admin Trade Name Freq PRN Reason Stop Dose Admin Acetaminophen 650 mg 03/10/23 05:29 Acetaminophen 325 Mg Tablet PO Q4H PRN Mild Pain (1-3) or Fever Al Hydrox/Mg Hydrox/Simethicone 30 ml 03/10/23 05:29 Mag Hydrox/Al Hydrox/Simeth 30 Ml Udc PO QID PRN Dyspepsia Alprazolam 0.25 mg 03/10/23 09:00 03/16/23 08:42 Alprazolam (*Crx) 0.25 Mg Tab
[2023-03-16 11:24] LABS: Glucose Point of Care 231 mg/dl (65-105)
[2023-03-16] MEDS: INSULIN ASPART (*BKC) 100 UNITS/ML SUB-Q ×2 (11:42→16:54)
--- NOTE | 2023-03-16 14:29 | PC.NURSE ---
On 03/16/23, the student, [Shannan Cole], provided care and completed [facility] documentation on this patient. I have reviewed the student's documentation and agree with the findings.
--- NOTE | 2023-03-16 14:48 | PM.IMPN ---
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 Treated for COVID 10 days prior to admission with Paxil but stopped due to intolerance. Complains of cough and congestion. 1) covid-19 with encephalopathy - CT head neg, MRI marcel negative - improved on 03/16, still A&Ox1 but a bit more energetic 2) CAP - received 5 day course of ceftriaxone and azithromycin 3) NIDDM - accuchecks and sliding scale 4) dementia - in current state, unable to care for herself at home, she lives alone. d/c tomorrow to [facility] 5) hyponatremia - stable. nephrology following FEN: cardiac diabetic diet. saline lock IV GI prophylaxis: not indicated DVT prophylaxis: lovenox Lines: pIV Code Status: DNR Dispo: stable. pending insurance to go to rehab More than 25 minutes spent on chart review, patient interaction and assessment and plan. Subjective Date/time seen: 03/16/23 14:48 Interval history: NAOE. pt reports she is lonely and wants her family. son is on the way. she otherwise has no complaints. Review of Systems Review of Systems: All systems reviewed & are unremarkable except as noted in HPI and below Exam Const: General: comfortable and no acute distress Eyes: Pupils: Equal, round and reactive pupils present Resp: Effort & Inspection: normal respiratory effort Cardio: Rate: regular rate Rhythm: regular rhythm Extrem: General: no edema Objective Data Vital Signs Vital Signs: Vital Signs - 24 hr 03/15/23 16:00 03/15/23 16:00 03/15/23 20:26 Temperature 97.7 F 97.3 F L Pulse Rate 73 75 66 Respiratory Rate 16 18 Blood Pressure 138/64 106/48 L Pulse Oximetry 100 97 Oxygen Delivery 03/15/23 20:36 03/15/23 20:00 03/16/23 00:00 Temperature 97.3 F L Pulse Rate 66 69 Respiratory Rate 18 Blood Pressure 118/58 L Pulse Oximetry 99 Oxygen Delivery Room Air 03/15/23 20:00 03/16/23 00:00 03/16/23 03:52 Temperature 97.3 F L Pulse Rate 67 79 66 Respiratory Rate 20 Blood Pressure 128/60 Pulse Oximetry 99 Oxygen Delivery 03/16/23 04:00 03/16/23 08:00 03/16/23 08:42 Temperature 97.1 F L Pulse Rate 65 72 72 Respiratory Rate 18 Blood Pressure 125/58 L Pulse Oximetry 100 Oxygen Delivery 03/16/23 08:00 03/16/23 08:00 Temperature Pulse Rate 60 Respiratory Rate Blood Pressure Pulse Oximetry 100 Oxygen Delivery Room Air Intake/Output Intake/Output: Intake & Output 03/13/23 03/14/23 03/15/23 03/16/23 23:59 23:59 23:59 23:59 Intake Total 4050 224 1898 358 Output Total 550 Balance 1440 960 698 358 Meds/Results Medications: Active Medications Generic Name Dose Route Start Last Admin Trade Name Freq PRN Reason Stop Dose Admin Acetaminophen 650 mg 03/10/23 05:29 Acetaminophen 325 Mg Tablet PO Q4H PRN Mild Pain (1-3) or Fever Al Hydrox/Mg Hydrox/Simethicone 30 ml 03/10/23 05:29 Mag Hydrox/Al Hydrox/Simeth 30 Ml Udc PO QID PRN Dyspepsia Alprazolam 0.25 mg 03/10/23 09:00 03/16/23 08:42 Alprazolam (*Crx) 0.25 Mg Tablet PO 0.25 mg DAILY YUSUF Administration Atorvastatin Calcium 40 mg 03/10/23 21:00 03/15/23 20:36 Atorvastatin 40 Mg Tablet PO 40 mg HS YUSUF Administration Dextrose 12.5 gm 03/10/23 09:00 Dextrose 50% 25 Gm/50 Ml Syringe IV PUSH PRN PRN Hypoglycem
[2023-03-16 16:38] LABS: Glucose Point of Care 239 mg/dl (65-105)
[2023-03-16] MEDS: ACETAMINOPHEN 325 MG TABLET 650 MG PO (16:56)
[2023-03-16] MEDS: ATORVASTATIN 40 MG TABLET PO (20:23)
[2023-03-16] MEDS: lisinopriL 10 MG TABLET PO (20:23)
[2023-03-16] MEDS: DONEPEZIL HCL 10 MG TABLET PO (20:24)
[2023-03-17] VITALS (8 sets, daily range): BP systolic 109–149; BP diastolic 43–70; PULSE 59–78; RESP 16–18; TEMP 36.3–36.8; O2SAT 98–100
[2023-03-17 06:09] LABS: Basophils Absolute Auto 0.1 K/mm3 (0.0-0.1); Basophils Percent Auto 0.8 % (0.2-1.2); Eosinophils Absolute Auto 0.1 K/mm3 (0-0.3); Eosinophils Percent Auto 1.7 % (0-4.4); Hematocrit 38.2 % (37.0-47.0); Hemoglobin 12.4 g/dL (12.0-15.0); Immature Granulocyte Absolute 0.09 K/mm3 (0.00-0.031); Immature Granulocyte Percent A 1.1 % (0-0.5); Lymphocytes Absolute Auto 1.59 K/mm3 (0.9-3.2); Lymphocytes Percent Auto 18.8 % (18.3-44.2); Mean Corpuscular HGB Conc 32.5 g/dl (32-36); Mean Corpuscular Hemoglobin 29.8 pg (26-34); Mean Corpuscular Volume 91.8 fl (80-100); Mean Platelet Volume 10.4 fl (7.4-10.4); Monocytes Absolute Auto 0.9 K/mm3 (0.1-0.6); Monocytes Percent Auto 10.9 % (2.6-8.5); Neutrophils Absolute Auto 5.7 K/mm3 (1.3-6.7); Neutrophils Percent Auto 66.7 % (45.5-73.1); Platelet Count Result 246 k/mm3 (150-375); Red Blood Count 4.16 M/mm3 (4.2-5.4); Red Cell Distribution Width 12.8 % (11.5-14.5); White Blood Count 8.5 K/mm3 (4.5-10.0)
[2023-03-17 06:12] LABS: Anion Gap 5 mmol/L (8-16); Blood Urea Nitrogen 21 mg/dL (7-17); Calcium 9.1 mg/dL (8.4-10.2); Carbon Dioxide 27 mmol/L (22-30); Chloride 97 mmol/L (98-107); Estimated CRCL calculation 41 ml/min; Estimated Glomerular Filt Rate > 60; Glucose 201 mg/dL (65-110); Potassium 4.4 mmol/L (3.4-5.0); Sodium 129 mmol/L (137-145)
[2023-03-17 08:05] LABS: Glucose Point of Care 183 mg/dl (65-105)
--- NOTE | 2023-03-17 08:20 | PM.DS ---
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 She was previously living by herself, and admitted as she could not take care of herself. She was treated for CAP and post covid syndrome, likely worsening her dementia. She is improved and stable for d/c on 03/12, back to her baseline mental status A&Ox2, going to SNF for rehab. Family is in agreement with this plan. For her hyponatremia, nephrology was consulted, it is stable. patient was DNR during her course here More than 30 minutes spent on discharge planning and documentation. DS: Summary Hospital Course Hospital Course: A pleasant 82F w/ PMH CVA, vascular dementia, HTN, NIDDM, HLD, presented with progressive lethargy, confusion. She was previously living by herself, and admitted as she could not take care of herself. She was treated for CAP and post covid syndrome, likely worsening her dementia. She is improved and stable for d/c on 03/12, back to her baseline mental status A&Ox2, going to SNF for rehab. Family is in agreement with this plan. For her hyponatremia, nephrology was consulted, it is stable. patient was DNR during her course here More than 30 minutes spent on discharge planning and documentation. Time Spent with Patient Time attestation: Total time spent providing and/or coordinating discharge services: Exam Const: General: comfortable Other: A&Ox2 Eyes: Pupils: Equal, round and reactive pupils present Resp: Effort & Inspection: normal respiratory effort Cardio: Rate: regular rate Rhythm: regular rhythm DS: Data Data Completed and Pending Labs on day of discharge: Labs from last 24 hours 03/17/23 03/17/23 03/16/23 07:52 05:46 16:32 WBC 8.5 RBC 4.16 L Hgb 12.4 Hct 38.2 MCV 91.8 MCH 29.8 MCHC 32.5 RDW 12.8 Plt Count 246 MPV 10.4 Immature Gran % (Auto) 1.1 H Neut % (Auto) 66.7 Lymph % (Auto) 18.8 [place] % (Auto) 10.9 H Eos % (Auto) 1.7 Baso % (Auto) 0.8 Lymph # (Auto) 1.59 [place] # (Auto) 0.9 H Eos # (Auto) 0.1 Baso # (Auto) 0.1 Abs Immat Gran (auto) 0.09 H Absolute Neuts (auto) 5.7 Absolute Nucleated RBC 0.0 Nucleated RBC % 0.0 Sodium 129 L Potassium 4.4 Chloride 97 L Carbon Dioxide 27 Anion Gap 5 L BUN 21 H Creatinine 0.70 Estim Creat Clear Calc 41 Estimated GFR > 60 Glucose 201 H POC Capillary Glucose 183 H 239 H Calcium 9.1 Ur Random Creatinine U Random Total Protein Ur Random Urea Urine Creatinine Protein/Creatinin Ratio Protein/Creat Ratio 2 Urine Albumin U Ssveu-0-Qoawqjyx U Vtnqn-2-[place] U Beta Globulin U Gamma Globulin U Abnormal Prot Band 1 U Abnormal Prot Band 2 U Abnormal Prot Band 3 Urine PEP Interpret 03/16/23 03/15/23 03/15/23 11:18 12:32 12:32 WBC RBC Hgb Hct MCV MCH MCHC RDW Plt Count MPV Immature Gran % (Auto) Neut % (Auto) Lymph % (Auto) [place] % (Auto) Eos % (Auto) Baso % (Auto) Lymph # (Auto) [place] # (Auto) Eos # (Auto) Baso # (Auto) Abs Immat Gran (auto) Absolute Neuts (auto) Absolute Nucleated RBC
[2023-03-17] MEDS: ALPRAZolam (*CRX) 0.25 MG TABLET PO (09:35)
[2023-03-17] MEDS: METOPROLOL SUCCINATE EXT REL 50 MG TABCR PO (09:35)
[2023-03-17] MEDS: ENOXAPARIN 40 MG/0.4 ML SYRINGE SUB-Q (09:35)
[2023-03-17 11:59] LABS: Glucose Point of Care 265 mg/dl (65-105)
[2023-03-17] MEDS: INSULIN ASPART (*BKC) 100 UNITS/ML SUB-Q ×2 (12:15→16:54)
[2023-03-17 16:52] LABS: Glucose Point of Care 228 mg/dl (65-105)
[2023-03-19 19:57] LABS: Osmolality, Urine 632 mOsm/kg (50-1200)
[2023-03-19 23:52] LABS: Kappa\\Lambda Light Chains 1.32 (0.26-1.65); Lambda Light Chain 11.4 mg/L (5.7-26.3)
[2023-03-20 14:45] LABS: Albumin 3.5 g/dL (3.8-4.8); Alpha 1 Globulin 0.4 g/dL (0.2-0.3); Beta 1 Globulin 0.4 g/dL (0.4-0.6); Gamma Globulin 0.5 g/dL (0.8-1.7); Protein, Total 6.1 g/dL (6.1-8.1)
[2023-03-21 06:54] LABS: Glucose Point of Care 260 mg/dl (65-105)
[2023-03-23 01:23] LABS: Creatinine, Random Urine 72 mg/dL (20-275); Total Protein/Creatinine Ratio 111 mg/g creat (24-184)
== END 2023-03-17 17:10 | DRG 70 ==
PROVIDERS: Internal Medicine; Internal Medicine Nephrology; Admitting Provider Internal Medicine; PCP Internal Medicine; Visit Provider General Practice
DX: G93.40 Encephalopathy, unspecified (principal); J18.9 Pneumonia, unspecified organism; E87.1 Hypo-osmolality and hyponatremia; E87.20 Acidosis, unspecified; U09.9 Post COVID-19 condition, unspecified; E86.0 Dehydration; E11.9 Type 2 diabetes mellitus without complications; E78.5 Hyperlipidemia, unspecified; I10 Essential (primary) hypertension; F01.50 Vascular dementia, unspecified severity, without behavioral disturbance, psychotic disturbance, mood disturbance, and anxiety; Z66 Do not resuscitate; Z86.73 Personal history of transient ischemic attack (TIA), and cerebral infarction without residual deficits
CPT/HCPCS: 36415; 70551; 71045; 73630; 80048; 80053; 82533; 82570; 82948; 83036; 83735; 83883; 83935; 84145; 84155; 84156; 84165; 84166; 84300; 84443; 84540; 85025; 87040; 92610; 97110; 97161; 97165; 97530; 97535; A9270; G0378; G0379; J0456; J0696; J1650; J1815; J7030